=== PATIENT | male | born 1975 | race Caucasian/White ===

== ENCOUNTER 2019-12-25 14:32 | Emergency (ER) | payer SELFPAY ==
[2019-12-25 15:38] LABS: Absolute Lymphocytes (CBC) 1.6 K/uL (0.7-4.9); Basophils % 1.3 % (0-1.3); Hematocrit 42.9 % (39.6-49.0); Lymphocytes % 20.2 % (15.3-44.8); MPV 8.3 fL (7.6-11.3); RBC Red Blood Cell Count 4.87 M/uL (4.33-5.43)
--- NOTE | 2019-12-25 15:52 | RAD REPORT ---
EXAM DESCRIPTION: CT - Stone Protocol - 12/25/2019 3:36 pm CLINICAL HISTORY: Abdominal pain./left flank pain COMPARISON: None. TECHNIQUE: Computed axial tomography of the abdomen pelvis was obtained without oral or IV contrast. Lack of IV and oral contrast limits evaluation of solid organs, bowel, and vessels. Coronal reformat peggy images were obtained and reviewed. All CT scans are performed using dose optimization technique as appropriate and may include automated exposure control or mA/KV adjustment according to patient size. FINDINGS: Small right renal calculi. No hydronephrosis. Left extrarenal pelvis. Minimal left hydronephrosis. No left renal calculus. A ureteral calculus is n ot visualized. No bladder calculus. Portions of the left ureter are mildly dilated 3 millimeter right lower lobe nodule abuts the fissure. Small hepatic cysts. The liver, spleen, pancreas and adrenals appear grossly normal There is no evidence of diverticulitis. The appendix appears normal. Small inguinal hernias contain fat. Spondylosis involves L4-5 IMPRESSION: Nonobstructing right renal calculi Portions of the left ureter are mildly dilated. Minimal left hydronephrosis. Perhaps the patient has had a recently passed stone 3 millimeter right lower lobe nodule probably benign. If patient is high risk follow up CT chest in 1 year would be recommended
[2019-12-25 15:54] LABS: Potassium 4.1 mmol/L (3.5-5.1)
--- NOTE | 2019-12-25 16:01 | EDPHYS ---
Physician Documentation [facility] Name: Severo Luna Age: 44 yrs Sex: Male : 1975 Arrival Date: 12/25/2019 Time: 14:33 Bed 17 Private MD: ED Physician Eb Hanley HPI: 12/24 16:04 This 44 yrs old Male presents to ER via Ambulatory with complaints of kb Possible Kidney Stone. 16:04 The patient complains of pain in the left flank. The pain radiates to the left lower kb quadrant. Onset: The symptoms/episode began/occurred yesterday. Modifying factors: The symptoms are alleviated by nothing. the symptoms are aggravated by nothing. Associated signs and symptoms: The patient has no apparent associated signs or symptoms. Severity of pain: At its worst the pain was moderate in the emergency department the pain is unchanged. The patient has experienced similar episodes in the past. The patient has not recently seen a physician. Historical: - Allergies: 14:46 No Known Allergies; aa5 - PMHx: 14:46 Hypertension; Kidney stones; acid reflux; aa5 - PSHx: 14:46 Disc surgery; aa5 - Immunization history:: Adult Immunizations unknown. - Social history:: Smoking status: Patient denies any tobacco usage or history of. ROS: 16:02 Constitutional: Negative for fever, chills, and weight loss, Neck: Negative for injury, kb pain, and swelling, Cardiovascular: Negative for chest pain, palpitations, and edema, Respiratory: Negative for shortness of breath, cough, wheezing, and pleuritic chest pain, : Negative for injury, bleeding, discharge, and swelling, MS/Extremity: Negative for injury and deformity, Skin: Negative for injury, rash, and discoloration, Neuro: Negative for headache, weakness, numbness, tingling, and seizure. 16:02 Abdomen/GI: Positive for abdominal pain, Negative for nausea, vomiting, and diarrhea. 16:02 Back: Positive for flank pain, on the left. Exam: 16:02 Constitutional: This is a well developed, well nourished patient who is awake, alert, kb and in no acute distress. Head/Face: Normocephalic, atraumatic. Chest/axilla: Normal chest wall appearance and motion. Nontender with no deformity. No lesions are appreciated. Cardiovascular: Regular rate and rhythm with a normal S1 and S2. No gallops, murmurs, or rubs. Normal PMI, no JVD. No pulse deficits. Respiratory: Lungs have equal breath sounds bilaterally, clear to auscultation and percussion. No rales, rhonchi or wheezes noted. No increased work of breathing, no retractions or nasal flaring. Back: No spinal tenderness. No costovertebral tenderness. Full range of motion. Skin: Warm, dry with normal turgor. Normal color with no rashes, no lesions, and no evidence of cellulitis. MS/ Extremity: Pulses equal, no cyanosis. Neurovascular intact. Full, normal range of motion. Neuro: Awake and alert, GCS 15, oriented to person, place, time, and situation. Cranial nerves II-XII grossly intact. Motor strength 5/5 in all extremities. Sensory grossly intact. Cerebellar exam normal. Normal gait. 16:02 Abdomen/GI: Inspection: abdomen appears normal, Bowel sounds: normal, in all quadrants, Palpation: soft, in all quadrants, moderate abdominal tenderness, in the left lower quadrant. Vital Signs: 14:44 BP 141 / 85; Pulse 53; Resp 18 S; Temp 98.2(O); Pulse Ox 100% on R/A; Weight 105.23 kg aa5 (R); Height 5 ft. 10 in. (177.80 cm) (R); Pain 6/10; 16:01 BP 124 / 75; Pulse 47; Resp 16; Pulse Ox 98% ; bp 14:44 Body Mass Index 33.29 (105.23 kg, 177.80 cm) aa5 MDM: 14:52 Patient medically screened. kb 15:55 Data reviewed: vital signs, nurses notes. Data interpreted: Pulse oximetry: on room air kb is 100 %. Interpretation: normal. Counseling: I had a detailed discussion with the patient and/or guardian regarding: the historical points, exam findings, and any diagnostic results supporting the discharge/admit diagnosis, lab results, radiology results, the need for outpatient follow up, a urologist, to return to the emergency department if symptoms worsen or persist or if there are any questions or concerns that arise at home. ED course: Stone was noted in urine sample that was provided prior to CT scan. 12/24 15:09 Order name: Basic Metabolic Panel; Complete Time: 15:55 kb 12/24 15:09 Order name: CBC with Diff; Complete Time: 15:41 kb 12/24 15:09 Order name: CT Stone Protocol; Complete Time: 15:55 kb 12/24 15:09 Order name: Urine Dipstick-Ancillary (obtain specimen); Complete Time: 15:22 kb 12/24 15:09 Order name: IV Start; Complete Time: 15:22 kb 12/24 15:36 Order name: Urine Dipstick--Ancillary (enter results) em1 Administered Medications: No medications were administered Disposition: 16:20 Co-signature as Attending Physician, Eb Hanley MD. rn Disposition: 12/25/19 16:01 Discharged to Home. Impression: Calculus of kidney and ureter - passed. - Condition is Stable. - Discharge Instructions: Kidney Stones, [id number], Dietary Guidelines to Help Prevent Kidney Stones. - Prescriptions for Diclofenac Sodium 75 mg Oral Tablet, Delayed Release (E.C.) - take 1 tablet by ORAL route 2 times per day As needed; 30 tablet. - Medication Reconciliation Form, Thank You Letter, Antibiotic Education, Prescription Opioid Use form. - Follow up: Emergency Department; When: As needed; Reason: Worsening of condition. Follow up: Private Physician; When: 2 - 3 days; Reason: Recheck today's complaints, Continuance of care, Re-evaluation by your physician. Signatures: Dispatcher [employer] EDMona Weathers, ROLLING MACHINE OPERATOR AUTOMATIC-C ROLLING MACHINE OPERATOR AUTOMATIC-Ckb Eb Hanley MD MD rn Calderon, Audri, RN RN aa5 Raman Negrete RN RN bp Corrections: (The following items were deleted from the chart) 16:13 16:01 12/25/2019 16:01 Discharged to Home. Impression: Calculus of kidney and ureter - bp passed. Condition is Stable. Forms are Medication Reconciliation Form, Thank You Letter, Antibiotic Education, Prescription Opioid Use. Follow up: Emergency Department; When: As needed; Reason: Worsening of condition. Follow up: Private Physician; When: 2 - 3 days; Reason: Recheck today's complaints, Continuance of care, Re-evaluation by your physician. kb
--- NOTE | 2019-12-25 16:01 | ER ---
Nurse's Notes [facility] Name: Severo Luna Age: 44 yrs Sex: Male : 1975 Arrival Date: 12/25/2019 Time: 14:33 Bed 17 Private MD: Diagnosis: Calculus of kidney and ureter-passed Presentation: 12/24 14:44 Chief complaint: Patient states: left flank pain radiating to LLQ that began today. Pt aa5 also reports nausea and vomiting, hx of kidney stones. Coronavirus screen: Client denies travel out of the [place] in the last 14 days. At this time, the client does not indicate any symptoms associated with coronavirus-19. Ebola Screen: Patient negative for fever greater than or equal to 101.5 degrees Fahrenheit, and additional compatible Ebola Virus Disease symptoms. Initial Sepsis Screen: Does the patient meet any 2 criteria? No. Patient's initial sepsis screen is negative. Does the patient have a suspected source of infection? No. Patient's initial sepsis screen is negative. Risk Assessment: Do you want to hurt yourself or someone else? Patient reports no desire to harm self or others. Onset of symptoms was December 25, 2019. 14:44 Method Of Arrival: Ambulatory aa5 14:44 Acuity: SCOT 3 aa5 Triage Assessment: 14:50 General: Appears in no apparent distress. uncomfortable, Behavior is cooperative, bp appropriate for age, anxious. Pain: Complains of pain in left flank. EENT: No deficits noted. Neuro: No deficits noted. Cardiovascular: No deficits noted. Respiratory: No deficits noted. GI: Abdomen is non-distended, Reports nausea. : No signs and/or symptoms were reported regarding the genitourinary system. Derm: No deficits noted. Musculoskeletal: No deficits noted. Historical: - Allergies: 14:46 No Known Allergies; aa5 - PMHx: 14:46 Hypertension; Kidney stones; acid reflux; aa5 - PSHx: 14:46 Disc surgery; aa5 - Immunization history:: Adult Immunizations unknown. - Social history:: Smoking status: Patient denies any tobacco usage or history of. Screenin:50 Abuse screen: Denies threats or abuse. Denies injuries from another. Nutritional bp screening: No deficits noted. Tuberculosis screening: No symptoms or risk factors identified. Fall Risk None identified. Assessment: 14:50 General: SEE TRIAGE NOTE. bp 15:30 Reassessment: STONE NOTED IN PROVIDED UOP. bp 16:08 Reassessment: PT D/C HOME AMBULATORY WITH FAMILY, DX WITH RENAL CALCULUS. bp Vital Signs: 14:44 BP 141 / 85; Pulse 53; Resp 18 S; Temp 98.2(O); Pulse Ox 100% on R/A; Weight 105.23 kg aa5 (R); Height 5 ft. 10 in. (177.80 cm) (R); Pain 6/10; 16:01 BP 124 / 75; Pulse 47; Resp 16; Pulse Ox 98% ; bp 14:44 Body Mass Index 33.29 (105.23 kg, 177.80 cm) aa5 ED Course: 14:33 Patient arrived in ED. ag5 14:45 Triage completed. aa5 14:46 Arm band placed on. aa5 14:47 Mona Mchugh FNP-C is [facility]. kb 14:47 Eb Hanley MD is Attending Physician. kb 14:50 Patient has correct armband on for positive identification. Bed in low position. Call bp light in reach. Side rails up X2. 15:03 Raman Negrete, RN is Primary Nurse. bp 15:20 Inserted saline lock: 20 gauge in right forearm, using aseptic technique. bp 15:30 No provider procedures requiring assistance completed. IV discontinued, intact, bp bleeding controlled, No redness/swelling at site. Pressure dressing applied. 15:37 CT Stone Protocol In Process Unspecified. EDMS Administered Medications: No medications were administered Outcome: 15:30 Discharged to home bp 15:30 Condition: stable 15:30 Discharge instructions given to patient, family, Instructed on discharge instructions, follow up and referral plans. Demonstrated understanding of instructions, follow-up care. 16:01 Discharge ordered by . kb 16:13 Patient left the ED. bp Signatures: Dispatcher [employer] EDMS Mona Mchugh FNP-C FNP-Ckb Calderon, Audri, RN RN [facility] Raman Negrete, RN RN Ajay Zapata ag5
[2019-12-25 16:21] VITALS: TEMP 98.2
[2019-12-25 16:23] VITALS: BP 124/75; O2SAT 98
[2019-12-25 17:44] LABS: Urine Blood 3+ (NEG); Urine Glucose NEGATIVE (NEG); Urine Protein NEGATIVE (NEG)
== END 2019-12-25 16:13 | disposition home or self-care (01) ==
LOC: ER 14:32
DX: N20.2 Calculus of kidney with calculus of ureter (principal); Z87.442 Personal history of urinary calculi
CPT/HCPCS: 36415; 74176; 76377; 80048; 81003; 85025; 99283

== ENCOUNTER 2020-10-12 08:46 | Emergency (ER) | payer OTHER, SELFPAY ==
[2020-10-12 09:56] LABS: Absolute Lymphocytes (CBC) 1.2 K/uL (0.7-4.9); Basophils % 0.9 % (0-1.3); Hematocrit 44.5 % (39.6-49.0); Lymphocytes % 17.7 % (15.3-44.8); MPV 7.9 fL (7.6-11.3); RBC Red Blood Cell Count 4.95 M/uL (4.33-5.43)
[2020-10-12 10:11] LABS: Albumin 3.6 g/dL (3.4-5.0); Bilirubin Direct 0.1 mg/dL (0-0.2); Bilirubin Total 0.3 mg/dL (0.2-1.0); Potassium 4.1 mmol/L (3.5-5.1); Protein, Total 7.1 g/dL (6.4-8.2)
[2020-10-12] MEDS ORDERED: NA CHLORIDE 0.9% 1,000 ML ONE (10:12)
[2020-10-12] MEDS ORDERED: ONDANSETRON 4 MG/2 ML VIAL ONE (10:12)
[2020-10-12] MEDS ORDERED: MORPHINE 4 MG/ML SYR ONE (10:12)
[2020-10-12 10:32] LABS: Urine Blood 2+ (Negative); Urine Glucose Negative (Negative); Urine Protein Negative (Negative); Urine Specific Gravity 1.015 (1.005-1.030); Urine pH 5.5 (5.0-7.0)
[2020-10-12 10:42] LABS: Urine Bacteria NONE SEEN /HPF (NONE SEEN); Urine RBC >50 /HPF (NONE SEEN)
--- NOTE | 2020-10-12 11:16 | RAD REPORT ---
EXAM DESCRIPTION: CT - Stone Protocol - 10/12/2020 10:48 am CLINICAL HISTORY: RLQ PAIN COMPARISON: Stone Protocol dated 12/25/2019 TECHNIQUE: Axial 3 mm thick images were obtained without oral or IV contrast. The [id number] span s the entirety of the system including uppermost abdomen and lung bases. All CT scans are performed using dose optimization technique as appropriate and may include automated exposure control or mA/KV adjustment according to patient size. FINDINGS: Small 4 mm nodule lateral right lung base unchanged from December 2019. No acute lung base finding. Mild dilatation of the right pelvis and calices present secondary to a 5 mm right UPJ calculus. There is a nonobstructing 5 mm calcification in a calyx mid right kidney. No left-sided hydronephrosis and no left-sided calculi. No suspicious renal masses. Isodense masses and pyelonephritis are not exclud ed on a stone protocol CT scan. No significant adrenal finding. No urinary bladder suspicious finding . Imaged portions of the liver, spleen and pancreas show no suspicious findings on non-contrast imaging . No gallbladder or biliary tree abnormality identified. No suspicious bowel findings. No hernia, mass or bulky lymphadenopathy noted. No free air, free fluid or inflammatory stranding. No significant bony abnormality. IMPRESSION: Right UPJ 5 mm calcification causing mild dilatation of the pelvis and calices. Nonobstructing 5 mm calculus mid right kidney. Isodense masses and pyelonephritis are not excluded on stone protocol technique.
[2020-10-12] MEDS ORDERED: TAMSULOSIN 0.4 MG SR CAP ONE (11:59)
[2020-10-12] MEDS ORDERED: MAGNESIUM SULFATE 1 gm IVPB 1 GM/100 ML BAG IV ONE (11:59)
[2020-10-12] MEDS ORDERED: CEFTRIAXONE/SWI 1gm 1 GM/10 ML SYR ONE (11:59)
--- NOTE | 2020-10-12 18:05 | ER ---
Nurse's Notes [facility] Name: Severo Luna Age: 45 yrs Sex: Male : 1975 Arrival Date: 10/12/2020 Time: 08:48 Bed 15 Private MD: Diagnosis: Calculus of kidney with calculus of ureter-right Presentation: 10/12 08:56 Chief complaint: Patient states: episodic RLQ pain that began 2-3 days ago. Became much ss worse with nausea this morning and now "spasms" R flank. Coronavirus screen: Client denies travel out of the [place] in the last 14 days. Ebola Screen: Patient denies exposure to infectious person. Patient denies travel to an Ebola-affected area in the 21 days before illness onset. Initial Sepsis Screen: Does the patient meet any 2 criteria? No. Patient's initial sepsis screen is negative. Does the patient have a suspected source of infection? No. Patient's initial sepsis screen is negative. Risk Assessment: Do you want to hurt yourself or someone else? Patient reports no desire to harm self or others. Onset of symptoms was October 10, 2020. 08:56 Method Of Arrival: Ambulatory ss 08:56 Acuity: SCOT 3 ss Historical: - Allergies: 08:59 No Known Allergies; ss - Home Meds: 08:59 omeprazole 40 mg Oral cpDR 1 cap once daily [Active]; losartan 25 mg oral tab 1 tab ss once daily [Active]; - PMHx: 08:59 acid reflux; Hypertension; Kidney stones; ss - PSHx: 08:59 back sx; ss - Immunization history:: Adult Immunizations up to date. - Social history:: Smoking status: Patient denies any tobacco usage or history of. Screenin:34 Abuse screen: Denies threats or abuse. Nutritional screening: No deficits noted. ll1 Tuberculosis screening: No symptoms or risk factors identified. Fall Risk IV access (20 points). Total Granado Fall Scale indicates No Risk (0-24 pts). Assessment: 09:35 General: Appears in no apparent distress. Behavior is calm, cooperative, appropriate ll1 for age. Pain: Complains of pain in RLQ Quality of pain is described as aching. Neuro: No deficits noted. Cardiovascular: No deficits noted. Respiratory: No deficits noted. GI: Bowel sounds present X 4 quads. Abd is soft and non tender X 4 quads. Reports lower abdominal pain. 10:30 Reassessment: No changes from previously documented assessment. Patient and/or family ll1 updated on plan of care and expected duration. Pain level reassessed. 11:30 Reassessment: No changes from previously documented assessment. Patient and/or family ll1 updated on plan of care and expected duration. Pain level reassessed. Patient is alert, oriented x 3, equal unlabored respirations, skin warm/dry/pink. 12:30 Reassessment: No changes from previously documented assessment. Patient and/or family ll1 updated on plan of care and expected duration. Pain level reassessed. 13:30 Reassessment: No changes from previously documented assessment. Patient and/or family ll1 updated on plan of care and expected duration. Pain level reassessed. Patient is alert, oriented x 3, equal unlabored respirations, skin warm/dry/pink. Patient states feeling better. Patient states symptoms have improved. Vital Signs: 08:56 BP 152 / 96; Pulse 68; Resp 16; Temp 97.9(TE); Pulse Ox 98% on R/A; Weight 111.13 kg; ss Height 5 ft. 10 in. (177.80 cm); Pain 10/10; 10:14 BP 140 / 80; Pulse 51; Resp 17; ll1 13:36 BP 118 / 72; Pulse 58; Resp 17; Pulse Ox 98% on R/A; ll1 08:56 Body Mass Index 35.15 (111.13 kg, 177.80 cm) ED Course: 08:48 Patient arrived in ED. as 08:59 Triage completed. ss 08:59 Arm band placed on right wrist. ss 09:29 Johann Miller, ESSENCE is Primary Nurse. ll1 09:29 Patient placed in an exam room, on a stretcher. ll1 09:31 Wes Moctezuma PA is PHCP. cp 09:31 Eb Hanley MD is Attending Physician. cp 09:35 Patient has correct armband on for positive identification. Bed in low position. Call ll1 light in reach. Side rails up X 1. Pulse ox on. NIBP on. 09:42 Inserted saline lock: 22 gauge in right antecubital area, using aseptic technique. ll1 Blood collected. 10:48 Stone Protocol In Process Unspecified. EDMS 12:30 Wiliam Adorno MD is Referral Physician. cp 13:37 No provider procedures requiring assistance completed. IV discontinued, intact, ll1 bleeding controlled, No redness/swelling at site. Pressure dressing applied. Administered Medications: 10:07 Drug: NS 0.9% 1000 ml Route: IV; Rate: 1 bolus; Site: right antecubital; ll1 11:44 Follow up: Response: No adverse reaction; IV Status: Completed infusion; IV Intake: ll1 1000ml 10:07 Drug: morphine 4 mg Route: IVP; Site: right antecubital; ll1 11:17 Follow up: Response: No adverse reaction ll1 10:07 Drug: Zofran (Ondansetron) 4 mg Route: IVP; Site: right antecubital; ll1 11:17 Follow up: Response: No adverse reaction ll1 11:44 Drug: Flomax (tamsulosin) 0.4 mg Route: PO; ll1 13:35 Follow up: Response: No adverse reaction ll1 11:44 Drug: Magnesium Sulfate 1 grams Route: IVPB; Infused Over: 20 mins; Site: right ll1 antecubital; 12:44 Follow up: Response: No adverse reaction; IV Status: Completed infusion; IV Intake: ll1 100ml 11:44 Drug: Rocephin (cefTRIAXone) 1 grams Route: IV; Rate: calculated rate; Site: right ll1 antecubital; 13:38 Follow up: Response: No adverse reaction; IV Status: Completed infusion; IV Intake: [id number] 12:02 Drug: NS 0.9% 1000 ml Route: IV; Rate: 1 bolus; Site: right antecubital; ll1 13:35 Follow up: Response: No adverse reaction; IV Status: Completed infusion; IV Intake: ll1 1000ml 12:03 Drug: Ketorolac 15 mg Route: IVP; Site: right antecubital; ll1 13:35 Follow up: Response: No adverse reaction; Pain is decreased ll1 12:03 Drug: Dilaudid (HYDROmorphone) 1 mg Route: IVP; Site: right antecubital; ll1 13:35 Follow up: Response: No adverse reaction; Pain is decreased; RASS: Alert and Calm (0) ll1 Intake: 11:44 IV: 1000ml; Total: 1000ml. ll1 12:44 IV: 100ml; Total: 1100ml. ll1 13:35 IV: 1000ml; Total: 2100ml. ll1 13:38 IV: 10ml; Total: 2110ml. ll1 Outcome: 12:30 Discharge ordered by MD. cp 13:37 Discharged to home ambulatory. ll1 13:37 Condition: stable 13:37 Discharge instructions given to patient, family, Instructed on discharge instructions, follow up and referral plans. no drinking with medication, no driving heavy equipment, medication usage, Demonstrated understanding of instructions, follow-up care, medications, Prescriptions given X 4. 13:37 Patient left the ED. ll1 Signatures: Dispatcher [employer] EDMS Kristine Pagan Shelby, RN RN Wes Srinivasan PA PA cp Lewis, Lynsay, RN RN 1
--- NOTE | 2020-10-12 18:05 | EDPHYS ---
Physician Documentation [facility] Name: Severo Luna Age: 45 yrs Sex: Male : 1975 Arrival Date: 10/12/2020 Time: 08:48 Bed 15 Private MD: ED Physician Eb Hanley HPI: 10/12 09:41 This 45 yrs old Male presents to ER via Ambulatory with complaints of cp Abdominal Pain. 09:41 The patient presents with abdominal pain in the lower abdomen. Onset: The cp symptoms/episode began/occurred gradually, last week, and became worse this morning, Patient reports pain started gradually last Sunday and became worse this morning. The symptoms radiate to right back. Associated signs and symptoms: Pertinent positives: nausea, Pertinent negatives: constipation, diarrhea, fever, testicular pain, vomiting. The symptoms are described as constant. Historical: - Allergies: 08:59 No Known Allergies; ss - Home Meds: 08:59 omeprazole 40 mg Oral cpDR 1 cap once daily [Active]; losartan 25 mg oral tab 1 tab ss once daily [Active]; - PMHx: 08:59 acid reflux; Hypertension; Kidney stones; ss - PSHx: 08:59 back sx; ss - Immunization history:: Adult Immunizations up to date. - Social history:: Smoking status: Patient denies any tobacco usage or history of. ROS: 09:45 Constitutional: Negative for body aches, chills, fever, poor PO intake. cp 09:45 Eyes: Negative for injury, pain, redness, and discharge. cp Exam: 09:50 Constitutional: The patient appears in no acute distress, alert, awake, non-toxic, well cp developed, well nourished, uncomfortable. 09:50 Head/Face: Normocephalic, atraumatic. cp 09:50 Eyes: Periorbital structures: appear normal, Conjunctiva: normal, no exudate, no injection, Sclera: no appreciated abnormality, Lids and lashes: appear normal, bilaterally. 09:50 ENT: External ear(s): are unremarkable, Nose: is normal, Mouth: Lips: moist, Oral cp mucosa: moist, Posterior pharynx: Airway: no evidence of obstruction, patent. 09:50 Chest/axilla: Inspection: normal, Palpation: is normal, no crepitus, no tenderness. cp 09:50 Cardiovascular: Rate: normal, Rhythm: regular, Edema: is not appreciated, JVD: is not appreciated. 09:50 Respiratory: the patient does not display signs of respiratory distress, Respirations: normal, no use of accessory muscles, no retractions, labored breathing, is not present, Breath sounds: are clear throughout, no decreased breath sounds, no stridor, no wheezing. 09:50 Abdomen/GI: Inspection: abdomen appears normal, Bowel sounds: active, all quadrants, Palpation: soft, in all quadrants, moderate abdominal tenderness, in the anterior aspect of right lateral abdomen, posterior aspect of right lateral abdomen and right lower quadrant, rebound tenderness, is not appreciated, voluntary guarding, is elicited in the right lower quadrant. 09:50 Back: CVA tenderness, is absent. 09:50 Skin: no rash present. Vital Signs: 08:56 BP 152 / 96; Pulse 68; Resp 16; Temp 97.9(TE); Pulse Ox 98% on R/A; Weight 111.13 kg; ss Height 5 ft. 10 in. (177.80 cm); Pain 10/10; 10:14 BP 140 / 80; Pulse 51; Resp 17; ll1 13:36 BP 118 / 72; Pulse 58; Resp 17; Pulse Ox 98% on R/A; ll1 08:56 Body Mass Index 35.15 (111.13 kg, 177.80 cm) ss MDM: 09:41 Patient medically screened. cp 10:00 Differential diagnosis: appendicitis, bowel obstruction, Pyelonephritis, Testicular cp Torsion, Ureterolithiasis, urinary tract infection, colitis. 12:30 Data reviewed: vital signs, nurses notes, lab test result(s), radiologic studies, CT cp scan. 12:30 Counseling: I had a detailed discussion with the patient and/or guardian regarding: the cp historical points, exam findings, and any diagnostic results supporting the discharge/admit diagnosis, lab results, radiology results, the need for outpatient follow up, a urologist, to return to the emergency department if symptoms worsen or persist or if there are any questions or concerns that arise at home. Response to treatment: the patient's symptoms have markedly improved after treatment, VSS. Pain markedly improved. Patient tolerating po. Will discharge to home with return precautions worsening pain, intractable vomiting. 10/12 09:43 Order name: Basic Metabolic Panel; Complete Time: 10:39 cp 10/12 10:39 Interpretation: Normal except: CL 111; GLUC 113; GFR 66. cp 10/12 09:43 Order name: CBC with Diff; Complete Time: 10:39 cp 10/12 10:39 Interpretation: Normal except: EOSINOPHIL % 5.3. cp 10/12 09:43 Order name: Hepatic Function; Complete Time: 10:39 cp 10/12 09:43 Order name: Lipase; Complete Time: 10:39 10/12 09:44 Order name: Urine Microscopic Only; Complete Time: 10:44 10/12 10:44 Interpretation: Abnormal: URBC >50. 10/12 10:32 Order name: Urine Dipstick-Ancillary; Complete Time: 10:39 EDMS 10/12 10:44 Interpretation: Abnormal: UBLD 2+. 10/12 10:47 Order name: Stone Protocol; Complete Time: 11:23 EDMS 10/12 09:43 Order name: IV Saline Lock; Complete Time: 09:44 10/12 09:44 Order name: Labs collected and sent; Complete Time: 09:44 10/12 11:58 Order name: PO challenge; Complete Time: 13:35 cp Administered Medications: 10:07 Drug: NS 0.9% 1000 ml Route: IV; Rate: 1 bolus; Site: right antecubital; ll1 11:44 Follow up: Response: No adverse reaction; IV Status: Completed infusion; IV Intake: ll1 1000ml 10:07 Drug: morphine 4 mg Route: IVP; Site: right antecubital; ll1 11:17 Follow up: Response: No adverse reaction ll1 10:07 Drug: Zofran (Ondansetron) 4 mg Route: IVP; Site: right antecubital; ll1 11:17 Follow up: Response: No adverse reaction ll1 11:44 Drug: Flomax (tamsulosin) 0.4 mg Route: PO; ll1 13:35 Follow up: Response: No adverse reaction ll1 11:44 Drug: Magnesium Sulfate 1 grams Route: IVPB; Infused Over: 20 mins; Site: right ll1 antecubital; 12:44 Follow up: Response: No adverse reaction; IV Status: Completed infusion; IV Intake: ll1 100ml 11:44 Drug: Rocephin (cefTRIAXone) 1 grams Route: IV; Rate: calculated rate; Site: right ll1 antecubital; 13:38 Follow up: Response: No adverse reaction; IV Status: Completed infusion; IV Intake: 44sfiz2 12:02 Drug: NS 0.9% 1000 ml Route: IV; Rate: 1 bolus; Site: right antecubital; ll1 13:35 Follow up: Response: No adverse reaction; IV Status: Completed infusion; IV Intake: ll1 1000ml 12:03 Drug: Ketorolac 15 mg Route: IVP; Site: right antecubital; ll1 13:35 Follow up: Response: No adverse reaction; Pain is decreased ll1 12:03 Drug: Dilaudid (HYDROmorphone) 1 mg Route: IVP; Site: right antecubital; ll1 13:35 Follow up: Response: No adverse reaction; Pain is decreased; RASS: Alert and Calm (0) ll1 Disposition: 16:50 Co-signature as Attending Physician, Eb Hanley MD. rn Disposition Summary: 10/12/20 12:30 Discharge Ordered Location: Home cp Problem: new cp Symptoms: have improved cp Condition: Stable cp Diagnosis - Calculus of kidney with calculus of ureter - right cp Followup: cp - With: Wiliam Adorno MD - When: 2 - 3 days - Reason: Recheck today's complaints Discharge Instructions: - Discharge Summary Sheet cp - Kidney Stones cp - Renal Colic cp Forms: - Medication Reconciliation Form cp - Thank You Letter cp - Antibiotic Education cp - Prescription Opioid Use cp Prescriptions: - Flomax 0.4 mg Oral capsule - take 1 capsule by ORAL route once daily As needed 1/2 hour following the same cp meal each day; 5 capsule; Refills: 0, Product Selection Permitted - Ultracet 37.5-325 mg Oral Tablet - take 1 tablet by ORAL route every 6 hours - for up to 5 days; do not exceed 8 cp tablets per day.; 20 tablet; Refills: 0, Product Selection Permitted - Zofran 4 mg Oral Tablet - take 1 tablet by ORAL route every 12 hours As needed; 20 tablet; Refills: 0, cp Product Selection Permitted - Cipro 500 mg Oral Tablet - take 1 tablet by ORAL route every 12 hours for 7 days; 14 tablet; Refills: 0, cp Product Selection Permitted Signatures: Dispatcher [employer] EDMS Eb Hanley MD MD rn Smirch, Shelby, RN RN ss Wes Moctezuma PA PA cp Lewis, Lynsay RN RN ll1 Corrections: (The following items were deleted from the chart) 10:39 09:44 Abdomen Pelvis W Con+CT.RAD.BRZ ordered. EDMS EDMS 10:47 10:40 Abdomen ordered. EDMS EDMS
[2020-10-13 21:26] VITALS: TEMP 97.9; O2SAT 98
[2020-10-13 21:29] VITALS: BP 118/72
== END 2020-10-12 13:37 | disposition home or self-care (01) ==
LOC: ER 08:46
DX: N20.2 Calculus of kidney with calculus of ureter (principal); K21.9 Gastro-esophageal reflux disease without esophagitis; I10 Essential (primary) hypertension
CPT/HCPCS: 85025; 80048; 36415; 80076; 83690; 76377; 74176; J3475; J0696; J7030; J2405; 81003; 81015; 96361; 96365; 96366; 96368; 96375; 99284

== ENCOUNTER 2020-10-18 08:06 | Day surgery (SDC) | payer OTHER ==
[2020-10-15 13:39] LABS: Absolute Lymphocytes (CBC) 1.3 K/uL (0.7-4.9); Basophils % 1.1 % (0-1.3); Hematocrit 42.2 % (39.6-49.0); Lymphocytes % 16.1 % (15.3-44.8); MPV 7.7 fL (7.6-11.3); RBC Red Blood Cell Count 4.72 M/uL (4.33-5.43)
--- NOTE | 2020-10-15 13:47 | RAD REPORT ---
EXAM DESCRIPTION: RAD - Chest Pa And Lat (2 Views) - 10/15/2020 1:30 pm CLINICAL HISTORY: pre op, pending hernia repair COMPARISON: February 2016 TECHNIQUE: Frontal and lateral views of the chest were obtained. FINDINGS: The lungs are clear. Interstitial pattern matches comparison. Heart size is normal and ce ntral vasculature is within normal limits. No pleural effusion or pneumothorax seen. No acute bony finding noted. No aortic abnormality. IMPRESSION: No acute cardiopulmonary process. No significant change from comparison study.
[2020-10-15 13:52] LABS: Albumin 3.8 g/dL (3.4-5.0); Bilirubin Direct 0.2 mg/dL (0-0.2); Bilirubin Total 0.7 mg/dL (0.2-1.0); Protein, Total 7.5 g/dL (6.4-8.2)
[2020-10-18] MEDS ORDERED: Ringers Lactate 1,000 ML IV ONE (09:29)
[2020-10-18] MEDS: CEFOXITIN/SWI 1gm 1 GM/10 ML SYR ONE ×3 (10:18→11:55)
[2020-10-18] MEDS ORDERED: LIDOCAINE 1% MPF 5 ML VIAL ONE (11:51)
[2020-10-18] MEDS ORDERED: propofoL 200 MG/20 ML VIAL IV ONE (11:51)
[2020-10-18] MEDS ORDERED: FENTANYL CITR 100 MCG/2 ML ONE (11:51)
[2020-10-18] MEDS ORDERED: ROCURONIUM 50 MG/5 ML VIAL IV ONE (11:51)
[2020-10-18] MEDS ORDERED: MIDAZOLAM HCL 2 MG/2 ML INJ ONE (11:52)
--- NOTE | 2020-10-18 12:50 | P.BOP ---
Preoperative diagnosis: RLQ recurrent abd pain, tender umbilical hernia Postoperative diagnosis: same Primary procedure: 1. Diagnostic laparoscopy, 2. Laparoscopic appendectomy Secondary procedure: 3. open repair of umbilical hernia Specimen: hernia sac, appendix Findings: as above Anesthesia: General Complications: None Transferred to: Recovery Room Condition: Good
[2020-10-18] MEDS ORDERED: GLYCOPYRROLATE 0.2 MG/ML SYR ONE (12:52)
[2020-10-18] MEDS ORDERED: NEOSTIGMINE 1 MG/ML -5 ML ONE (12:53)
[2020-10-18] MEDS ORDERED: dexAMETHasone 10 MG/ML VIAL ONE (12:54)
[2020-10-18] MEDS ORDERED: KETOROLAC 30 MG/ML INJ ONE (12:54)
[2020-10-18] MEDS ORDERED: ONDANSETRON 4 MG/2 ML VIAL ONE (12:54)
[2020-10-18 13:10] VITALS: O2SAT 100
[2020-10-18] MEDS ORDERED: MEPERIDINE HCL 25 MG/ML SYR ONE (13:18)
[2020-10-18] MEDS: HYDROMORPHONE HCL 1 MG/ML INJ ONE ×2 (13:24→13:30)
--- NOTE | 2020-10-18 13:33 | OP ---
Date of Procedure: 10/18/2020 Surgeon: Bebo Pagan MD Preoperative Diagnoses: Right lower quadrant recurrent abdominal pain, tender umbilical hernia. Postoperative Diagnoses: Right lower quadrant recurrent abdominal pain, tender umbilical hernia. Procedures: 1.Diagnostic laparoscopy. 2.Laparoscopic appendectomy. 3.Open repair of umbilical hernia. Specimen: Appendix. Anesthesia: General plus local. Indications: This is the case of a 45-year-old patient who comes to us with 2 problems. He has a te nder periumbilical hernia, but at the same time, right lower quadrant pain. He has been in ER before and his primary doctor before trying to rule out appendicitis, but they have been able to find that on the CAT scan. He has an induration of the right lower side and the pain has been on and off weekl y and is disturbing his social life. Since we have a hernia present in that region and have to be re paired due to tenderness, I offered also a diagnostic laparoscopy putting the cameras inside. I may be looking for a ventral hernia in the right lower quadrant, any other pathology that he has on the r ight lower quadrant causing this pain and also he asked me to see if I can see the appendix and remov e it if possible. I explained to him that we are going to look for any abnormalities in the appendix . If I see anything other normal, yes we may proceed to do so. We booked him for diagnostic laparos copy, umbilical hernia repair, possible ventral hernia repair with the possibility of appendectomy. The benefits, alternatives, and risks were fully explained to the patient which include, but not limi peggy to infection, bleeding, damage to adjacent structures, anesthesia complication, negative appendix , negative exploration, MD, and even . He also understands this may not relieve any symptoms. He might need more than one surgical intervention. He understood, signed a consent. Procedure In Detail: The patient was brought to the operating room, placed in supine position. Anes thesia was done without complication. Abdominal area was prepped and draped in sterile fashion. A t lali-out was called. Incision was made in the periumbilical region. At that area, we have a hernia. We removed the umbilical skin from the hernia, removed the hernia sac. Then extended incision to al low Ebony trocar to be placed in. After that, I put the Ebony trocar to do a diagnostic laparoscop y. We put another 5 mm trocar in the suprapubic area and another 1 in the left lower quadrant. This allowed me to visualize the area of the small bowel, the large bowel, the liver and the area of the pelvis. The appendix was visualized, looks curled, looks asymmetrical in shape and color. I cannot rule out a chronic appendicitis in this patient. So, the appendix most likely will be removed. Ther e was a scar tissue to the appendix also that will also be removed with the specimen. The area of th e small bowel and large bowel shows no extraluminal masses. The area of the ventral region other sandro n the umbilical hernia does not show any ventral hernia present. We marked the area of the right low er quadrant and also near the rectus muscle with ink before the surgery and we were present in those areas while I had the camera inside and did not see any hernias in that region. The area of the pelv is looks intact. The area of the liver looks intact and stomach soft and compressible. At that mome nt, I proceeded to place create a window in the base of the appendix and transected with an Endo-SABINO 45 mm 3.5 and the mesoappendix with the Endo-SABINO 45 mm 2.5. Further hemostasis was obtained with the help of hemoclips. The area was irrigated and suctioned. Appendix was removed from abdominal cavit y using EndoCatch through the umbilical incision. The area was inspected, no bleeding. No bowel leak . At that moment, I proceeded to remove the trocars under direct vision. Deflated pneumoperitoneum, closed the fascia and umbilical hernia with #1 Vicryl. Irrigated subcutaneous tissue, closed that w ith 3-0 chromic and the skin in a subcuticular fashion with 3-0 chromic and Steri-Strips on top. Spo nge count, instrument counts were correct. The patient tolerated the procedure well. The patient sent to recovery in stab le condition. EDWAR/BORIS Voice ID: [id number] Report ID: [id number]
--- NOTE | 2020-10-18 13:36 | DS ---
Diagnoses: Right lower quadrant recurrent abdominal pain, tender umbilical hernia and appendicitis. Procedures: Diagnostic laparoscopy, laparoscopic appendectomy, open repair of umbilical hernia. Disposition: Home. Activity: As tolerated. No heavy lifting. Plan: Follow up in my office in 1 week. Call for appointment [phone]. Keep the area dry for 48 ho urs, then may shower. Keep Steri-Strip intact. Medications: Include Tylenol No.3 q.4 hours p.r.n. pain. EDWAR/BORIS Voice ID: [id number] Report ID: [id number]
[2020-10-18] MEDS ORDERED: CODEINE 30MG/APAP 300MG TAB PO ONE (14:09)
[2020-10-18] MEDS ORDERED: CODEINE 30MG/APAP 300MG TAB ONE (14:23)
[2020-10-18 14:31] VITALS: BP 132/63
[2020-10-18 15:25] VITALS: TEMP 97.6
== END 2020-10-18 15:15 | disposition home or self-care (01) ==
LOC: OR 08:06
PROVIDERS: ATTEND Surgery
PROC: 0DTJ4ZZ Resection of Appendix, Percutaneous Endoscopic Approach (ICD-10-PCS; 2020-10-18)
PROC: 0DJD4ZZ Inspection of Lower Intestinal Tract, Percutaneous Endoscopic Approach (ICD-10-PCS; 2020-10-18)
PROC: 0WQF0ZZ Repair Abdominal Wall, Open Approach (ICD-10-PCS; principal; 2020-10-18 11:30)
DX: K42.9 Umbilical hernia without obstruction or gangrene (principal); R10.31 Right lower quadrant pain; Z20.822 Contact with and (suspected) exposure to COVID-19
CPT/HCPCS: 49585; 44970; 93005; 85025; 80048; 36415; 82150; 80076; 88302; 71046; U0003; J2704; J2250; J3010; J1100; J2175; J1170; J2710; J7120; J2405; 88304

== ENCOUNTER 2020-12-06 10:49 | Day surgery (SDC) | payer OTHER ==
[2020-12-03 12:55] LABS: Protime INR 1.06
[2020-12-03 12:56] LABS: Absolute Lymphocytes (CBC) 1.4 K/uL (0.7-4.9); Basophils % 1.3 % (0-1.3); Hematocrit 41.1 % (39.6-49.0); Lymphocytes % 15.1 % (15.3-44.8); MPV 7.6 fL (7.6-11.3); RBC Red Blood Cell Count 4.67 M/uL (4.33-5.43)
[2020-12-03 13:13] LABS: Potassium 4.1 mmol/L (3.5-5.1)
--- NOTE | 2020-12-03 18:23 | EKG ---
Test Date: 2020-12-03 Test Time: 10:35:38 [place] Rope Maker: TULIO MEASUREMENT RESULTS: Intervals: Rate: 50 HI: 150 QRSD: 98 QT: 428 QTc: 390 [place]: P: 17 HI: 150 QRS: 49 T: 19 INTERPRETIVE STATEMENTS: Sinus bradycardia Otherwise normal ECG Compared to ECG 10/15/2020 12:31:00 Sinus rhythm no longer present Electronically Signed On 12-03-20 18:20:51 CDT by Christopher Becerra
[2020-12-06] MEDS ORDERED: Ringers Lactate 1,000 ML IV ONE (11:22)
[2020-12-06] MEDS ORDERED: MIDAZOLAM HCL 2 MG/2 ML INJ ONE (12:16)
[2020-12-06] MEDS ORDERED: FENTANYL CITR 100 MCG/2 ML ONE (12:16)
[2020-12-06] MEDS ORDERED: propofoL 200 MG/20 ML VIAL IV ONE (12:16)
[2020-12-06] MEDS ORDERED: LIDOCAINE 1% MPF 5 ML VIAL ONE (12:17)
[2020-12-06] MEDS ORDERED: CEFAZOLIN/SWI 2gm 2 GM/20 ML SYR ONE (12:37)
[2020-12-06] MEDS ORDERED: PHENAZOPYRIDINE 100MG TAB PO ONE (12:54)
[2020-12-06] MEDS ORDERED: CODEINE 30MG/APAP 300MG TAB PO PRN (12:54)
[2020-12-06] MEDS ORDERED: KETOROLAC 30 MG/ML INJ ONE (12:59)
[2020-12-06] MEDS ORDERED: ONDANSETRON 4 MG/2 ML VIAL ONE (13:02)
--- NOTE | 2020-12-06 13:37 | RAD REPORT ---
EXAM DESCRIPTION: RAD - Urethrocystogrphy Retrograde - 12/06/2020 12:53 pm CLINICAL HISTORY: STENT PLCMNT COMPARISON: No comparisons FINDINGS: Total fluoro time: 0.16 minutes
[2020-12-06 13:58] VITALS: BP 127/83; TEMP 97.1
[2020-12-06 14:39] VITALS: O2SAT 100
--- NOTE | 2020-12-07 00:29 | OP ---
Date of Procedure: 12/06/2020 Surgeon: ARLETH LIRA Preoperative Diagnoses: 1.Acute kidney injury. 2.Right ureterolithiasis. 3.Right hydronephrosis. 4.Right flank pain. Postoperative Diagnoses: 1.Acute kidney injury. 2.Right ureterolithiasis. 3.Right hydronephrosis. 4.Right flank pain. Principal Procedures: 1.Cystoscopy. 2.Right retrograde pyelography. 3.Right ureteral stent placement. Indication For Procedure: Mr. Luna presented to the Urology Clinic last week on Sunday with flank pain related to right ureteral calculus related obstruction. He had been with signs of what was lik martha acute kidney injury for several weeks at this point, by the time he sought outpatient evaluation with me as noted from his emergency department records. As a result, I counseled him on the importan ce of immediate relief of obstruction of his kidney to prohibit further renal function decline and we rechecked his kidney function, noting it to be relatively stable with the prior level at around 2 fo r the creatinine. Procedure In Detail: The patient was consented in the preoperative holding area before being transfe rred to the operative suite where general anesthesia was induced. He was given Ancef 2 g IV antimicr obial prophylaxis and pneumo boots were provided for DVT prophylaxis. He was placed in the lithotomy position, padded, and secured to the table appropriately. The case was begun using a 22-Cameroonian rigi d cystoscope to traverse the urethra and into the bladder with ease. The bladder was surveyed, and n o mucosal lesions, foreign bodies, or stones were noted throughout. The right ureteral orifice withi n the intramural component of the urine was noted to be somewhat heaped up indicative of the likely v lee distal placement of the stone. As a result, I intubated the right ureteral orifice with the tip of a 5-Cameroonian ureteral access catheter and performed a retrograde pyelogram study. Right retrograde pyelography: Using a 70:30 mixture of Omnipaque and saline, contrast was injected v ia the lumen of the 5-Cameroonian ureteral access catheter and did propagate with some evidences of high-g rade obstruction up the distal into the mid and proximal ureter before entering a very dilated renal pelvis, which did not significantly opacify with contrast. The area of obstruction was from the leve l of the UVJ at the tip of the 5-Cameroonian ureteral access catheter all the way up into the kidney, agai n confirming the likely presence of a stone in the distal ureter at the UVJ. As a result, I then, wi th some moderate difficulty, was able to navigate the tip of the Sensor wire around the obstructing s tone and eventually into the putative upper pole of the kidney as observed fluoroscopically with the wire within the substance of the ureteral lumen as identified by the contrast column there. With a c oil observed in the upper pole, I then was able to pass a 6-Cameroonian x 26 cm double-J ureteral stent in to his right upper pole, and I was able to form a coil there visible fluoroscopically as well as one in the bladder visible cystoscopically. There was evidence of papillary necrosis emanating from the ureteral orifice and from the stent. The bladder was then decompressed, and the scope was removed. He was taken out of the lithotomy position, awakened from general anesthesia, transferred to a [facility], and then transferred to the recovery room in good condition. Complications: None. Discharge Disposition: He should follow up within the next several weeks for ureteroscopy with laser lithotripsy and stent exchange on the right side to manage his stone related obstruction. Of note, the stone on CT was estimated to be about 5.5 mm in diameter and an additional 4 mm calculus is present within the mid pole of his right kidney with no stones on the lef t side. GISSELLE/BORIS Voice ID: [id number] Report ID: [id number]
== END 2020-12-06 14:55 | disposition home or self-care (01) ==
LOC: OR 10:49
PROVIDERS: ATTEND Urology
PROC: 0T768DZ Dilation of Right Ureter with Intraluminal Device, Via Natural or Artificial Opening Endoscopic (ICD-10-PCS; principal; 2020-12-06 12:00)
DX: N13.2 Hydronephrosis with renal and ureteral calculous obstruction (principal); N20.2 Calculus of kidney with calculus of ureter; R10.9 Unspecified abdominal pain; Z20.822 Contact with and (suspected) exposure to COVID-19; N17.9 Acute kidney failure, unspecified
CPT/HCPCS: 93005; 87088; 85025; 87086; 80048; 36415; 85610; 74450; 51610; 52332; U0003; J2704; J2250; J3010; J0690; J7120; J2405

== ENCOUNTER 2021-01-04 06:07 | Day surgery (SDC) | payer OTHER ==
[2021-01-04] MEDS ORDERED: Ringers Lactate 1,000 ML IV ONE (06:52)
[2021-01-04] MEDS ORDERED: SUCCINYLCHOLINE 20 MG/ML (10 ML) IV ONE (07:33)
[2021-01-04] MEDS ORDERED: MIDAZOLAM HCL 2 MG/2 ML INJ ONE (07:36)
[2021-01-04] MEDS ORDERED: LIDOCAINE 1% MPF 5 ML VIAL ONE (07:36)
[2021-01-04] MEDS ORDERED: FENTANYL CITR 100 MCG/2 ML ONE (07:36)
[2021-01-04] MEDS ORDERED: propofoL 200 MG/20 ML VIAL IV ONE ×2 (07:37→08:18)
[2021-01-04] MEDS ORDERED: ROCURONIUM 50 MG/5 ML VIAL IV ONE ×2 (07:41)
[2021-01-04] MEDS ORDERED: AMPICILLIN SODIUM 2 GM in NA CHLORIDE 0.9% 100 ML IVPB ONE (08:00)
[2021-01-04] MEDS ORDERED: Gentamicin Inj 240 MG in NA CHLORIDE 0.9% 100 ML IV ONE (08:00)
[2021-01-04] MEDS ORDERED: GLYCOPYRROLATE 0.2 MG/ML SYR ONE (08:32)
[2021-01-04] MEDS ORDERED: Mastisol Adhesive Liq ONE (08:44)
[2021-01-04] MEDS: FENTANYL CITR 100 MCG/2 ML ONE ×2 (08:48→09:02)
[2021-01-04] MEDS ORDERED: CODEINE 30MG/APAP 300MG TAB PO PRN (08:50)
[2021-01-04] MEDS ORDERED: PHENAZOPYRIDINE 100MG TAB PO ONE ×3 (08:50→09:56)
[2021-01-04] MEDS ORDERED: CODEINE 30MG/APAP 300MG TAB PO ONE (09:30)
[2021-01-04 09:42] LABS: Potassium 4.5 mmol/L (3.5-5.1)
[2021-01-04 09:50] VITALS: BP 123/68
[2021-01-04] MEDS ORDERED: CODEINE 30MG/APAP 300MG TAB ONE (09:56)
[2021-01-04 10:22] VITALS: TEMP 97.9; O2SAT 100
--- NOTE | 2021-01-04 13:22 | OP ---
Surgeon: ARLETH LIRA Preoperative Diagnoses: 1.Right obstructive ureterolithiasis. 2.Acute kidney injury. 3.Status post cystoscopy and right ureteral stent placement. Postoperative Diagnoses: 1.Right obstructive ureterolithiasis. 2.Acute kidney injury. 3.Status post cystoscopy and right ureteral stent placement. 4.A 3 mm nephrolithiasis. 5.Partially excluded mid lower pole renal calyx. Procedures: 1.Cystourethroscopy with pyeloscopy. 2.Laser incision of an excluded renal calyx. 3.Laser lithotripsy of ureteral calculus. 4.Right ureteral stent exchange. Indication For Procedure: Mr. Luna presented to the Urology Clinic with presence of a right urete ral obstructing 5 mm stone and acute kidney injury that had been present for several weeks. He under went urgent right ureteral stent placement to resolve the acute kidney injury and he presents today f or definitive management of the stone. Of note, on review of his imaging, he had an additional 3 mm calculus seen within the mid lower pole of his right kidney. Procedure In Detail: The patient was consented in the preoperative holding area before being transfe rred to operative suite where general anesthesia was induced. He was given ampicillin and gentamicin 240 mg IV antimicrobial prophylaxis. Pneumo boots were provided for DVT prophylaxis. He was placed in the lithotomy position, padded and secured to the table appropriately. His genitalia were preppe d using Hibiclens and he was draped in standard fashion. The case was begun using a 22-Georgian rigid cystoscope to traverse the urethra and into the bladder with ease. The bladder was surveyed in its e ntirety and only the right ureteral stent, which was orthotopic in location, was noted. It was grasp ed using an alligator grasper and delivered to the meatus leaving the tip of the stent in the mid dis david ureter. Fluoroscopic guidance was then used to pass a Sensor wire up the stent and beyond a poin t of proximal stent obstruction likely due to encrustation and navigate the stent into the putative r enal pelvis. Over the Sensor wire, a dual-lumen catheter was then passed and a retrograde pyelogram was then performed. Right retrograde pyelography: Using a 70:30 mixture of Omnipaque and saline, contrast was injected via the second lumen of the dual -lumen catheter and did propagate up a relatively nondilated ureter into a nondilated renal pelvis an d the calices where the wire was observed to coil within the upper pole. As such, I passed a [employer] guidewire via the second lumen of the dual-lumen catheter and coiled alongside the Sensor wire. I t monroe removed the dual-lumen catheter and passed a digital flexible ureteroscope with ease over the Omar tson wire into the upper pole of the kidney. I then surveyed each of the calices of the [facility] for the 3 mm stone seen on preoperative CT. Despite survey of each and every calyx and the entire ty of the renal pelvis, no additional calculus was noted within the kidney. There was a partially ex cluded calyx with a membranous covering over it, which I incised using a 200 nm laser fiber at a padmini r setting of 0.8 joules and 8 hertz. I then surveyed back calyx for any stone and when no stone was seen within it, I backed into the renal pelvis and surveyed down the proximal into the mid and distal ureter before encountering the 5 mm calculus that was previously observed within the proximal ureter . Because the stone was very near to the ureterovesical junction, it was difficult to target with a flexible ureteroscope. So, I retracted the flexible ureteroscope and instead used a semi-rigid urete roscope to gain entry into the ureterovesical junction and visualize and target the stone directly. Again using the same 200 nm laser fiber and at this time with stone dusting settings of 0.4 joules an d 40 hertz, I was able to quickly fragment the 5 mm calculus down to dust smaller than or equal to th e size of the laser fiber. I then surveyed the distal ureter again beyond the point of the stone to ensure no fragments were propagated proximally into the ureter, and when none were noted, I retracted the scope and removed from his body. I then back-loaded the rigid cystoscope over the indwelling sa fety wire and passed a 6-Georgian by 26 cm double-J right ureteral stent with a coil observed within th e upper pole of the right kidney and 1 cystoscopically formed within the bladder. The stent was left on its tether, and the bladder was decompressed. I then attached the tether using Mastisol and Ster i-Strips to the glans penis. The patient was then taken out of the lithotomy position, awakened from general anesthesia, transferred to a stretcher, and then transferred to the recovery room in good co ndition. Complications: None. Discharge Disposition: He should follow up in Urology Clinic within the next 3-5 days to have the te thered ureteral stent removed. Subsequent followup will be determined if he is a recurrent stone for danish by the need for metabolic stone profile assess via 2 x 24 hour urine studies and blood work. PATRICK Voice ID: [id number] Report ID: [id number]
--- NOTE | 2021-01-04 14:54 | RAD REPORT ---
EXAM DESCRIPTION: RAD - Urography Retrograde - 01/04/2021 2:04 pm FINDINGS: There were 18 fluoroscopic KUB images obtained during fluoroscopic assisted placement of a right ureteral stent. No suspicious or unexpected findings. Fluoro time was 0.18 minutes.
== END 2021-01-04 10:17 | disposition home or self-care (01) ==
LOC: OR 06:07
PROVIDERS: ATTEND Urology
PROC: 0T768DZ Dilation of Right Ureter with Intraluminal Device, Via Natural or Artificial Opening Endoscopic (ICD-10-PCS; 2021-01-04)
PROC: 0TF68ZZ Fragmentation in Right Ureter, Via Natural or Artificial Opening Endoscopic (ICD-10-PCS; principal; 2021-01-04 07:30)
DX: N20.1 Calculus of ureter (principal); N20.0 Calculus of kidney; N17.9 Acute kidney failure, unspecified; Z20.822 Contact with and (suspected) exposure to COVID-19
CPT/HCPCS: 52356; 87088; 87086; 80048; 36415; 74420; U0003; J2704 ×2; J0330; J1580; J2250; J3010 ×2; J7120; J0290

== ENCOUNTER 2021-11-23 08:13 | Day surgery (SDC) | payer OTHER ==
--- NOTE | 2021-11-22 15:02 | RAD REPORT ---
EXAM DESCRIPTION: RAD - Chest Pa And Lat (2 Views) - 11/22/2021 2:50 pm CLINICAL HISTORY: Pre op pending cholecystectomy COMPARISON: Abdomen 1 View (KUB) dated 04/12/2021; Chest Pa And Lat (2 Views) dated 10/15/2020; Chest Pa And Lat (2 Views) dated 02/25/2016; CHEST SINGLE VIEW dated 10/27/2014 FINDINGS: Lines: None. Lungs: No evidence of edema or pneumonia. Pleural: No significant pleural effusions or pneumothorax. Cardiac: The heart size is within normal limits. Mediastinum: Within normal limits. Bones: No acute fractures. Other: None IMPRESSION: No acute cardiopulmonary disease.
[2021-11-22 15:12] LABS: Absolute Lymphocytes (CBC) 1.9 K/uL (0.7-4.9); Hematocrit 43.4 % (39.6-49.0); Lymphocytes % 22.7 % (15.3-44.8); MCV 88.3 fL (80-100); MPV 7.8 fL (7.6-11.3); RBC Red Blood Cell Count 4.91 M/uL (4.33-5.43)
[2021-11-22 15:33] LABS: SARS-CoV-2 Antigen Rapid Res Negative (Negative)
[2021-11-22 15:35] LABS: Albumin 3.8 g/dL (3.4-5.0); Bilirubin Direct 0.2 mg/dL (0-0.2); Bilirubin Total 0.6 mg/dL (0.2-1.0); Potassium 4.3 mmol/L (3.5-5.1); Protein, Total 7.1 g/dL (6.4-8.2)
[2021-11-23] MEDS ORDERED: CEFOXITIN SODIUM 1 GM/VIAL ONE (08:28)
[2021-11-23] MEDS ORDERED: Ringers Lactate 1,000 ML IV ONE (08:28)
[2021-11-23] MEDS ORDERED: ACETAMINOPHEN 500 MG TAB ONE (08:59)
[2021-11-23] MEDS ORDERED: CELECOXIB 100 MG CAPSULE ONE (09:00)
[2021-11-23] MEDS ORDERED: propofoL 200 MG/20 ML VIAL IV ONE (09:10)
[2021-11-23] MEDS ORDERED: LIDOCAINE 2% MPF 5 ML VIAL ONE (09:10)
[2021-11-23] MEDS ORDERED: MIDAZOLAM HCL 2 MG/2 ML INJ ONE (09:10)
[2021-11-23] MEDS ORDERED: GLYCOPYRROLATE 0.2 MG/ML SYR ONE (09:11)
[2021-11-23] MEDS ORDERED: FENTANYL CITR 250 MCG/5 ML ONE (09:11)
[2021-11-23] MEDS ORDERED: ROCURONIUM 50 MG/5 ML VIAL IV ONE (09:12)
[2021-11-23] MEDS ORDERED: ONDANSETRON 4 MG/2 ML VIAL ONE (09:16)
[2021-11-23] MEDS ORDERED: NEOSTIGMINE 1 MG/ML -10 ML VIAL ONE (09:16)
[2021-11-23] MEDS ORDERED: EPHEDRINE SULF 50 MG/ML VIAL ONE (09:59)
--- NOTE | 2021-11-23 10:34 | P.BOP ---
Preoperative diagnosis: symptomatic cholelithiasis, RUQ abd pain, cholecystitis Postoperative diagnosis: same Primary procedure: Laparoscopic cholecystectomy Market Research Assistant: sandhya Car) Estimated blood loss: <10cc Specimen: gb Findings: as above Anesthesia: General Complications: None Transferred to: Recovery Room Condition: Good
[2021-11-23] MEDS: MEPERIDINE HCL 25 MG/ML SYR ONE ×2 (10:38→10:43)
[2021-11-23] MEDS ORDERED: EPINEPHRINE INH 0.5 ML VIAL IH ONE (10:46)
[2021-11-23] MEDS ORDERED: dexAMETHasone 10 MG/ML VIAL ONE (10:49)
[2021-11-23] MEDS: HYDROMORPHONE HCL 1 MG/ML INJ ONE ×9 (10:51→11:32)
[2021-11-23] MEDS ORDERED: KETOROLAC 30 MG/ML INJ ONE (11:01)
--- NOTE | 2021-11-23 12:49 | EKG ---
Test Date: 2021-11-22 Test Time: 14:37:49 Deicer Repairer: MALDONADO MEASUREMENT RESULTS: Intervals: Rate: 54 TN: 160 QRSD: 90 QT: 416 QTc: 394 [place]: P: 24 TN: 160 QRS: 38 T: 40 INTERPRETIVE STATEMENTS: Sinus bradycardia Otherwise normal ECG Compared to ECG 12/03/2020 10:35:38 No significant changes Electronically Signed On 11-23-21 12:48:22 CDT by Colby Vasquez
--- NOTE | 2021-11-23 13:46 | OP ---
Date of Procedure: 11/23/2021 Surgeon: Bebo Pagan MD Product Analyst: Kimberly Laird. Preoperative Diagnoses: Symptomatic cholelithiasis, right upper quadrant abdominal pain, cholecystit is. Postoperative Diagnoses: Symptomatic cholelithiasis, right upper quadrant abdominal pain, cholecysti tis. Procedure: Laparoscopic cholecystectomy Estimated Blood Loss: Less than 10 cc. Specimen: Gallbladder. Anesthesia: General plus local. Complications: None. Indication: This is the case of a male, who comes to us with above diagnosis. Fully explained the b enefits, alternatives, and risks of laparoscopic, possible open cholecystectomy, which include, but n ot limited to infection, bleeding, damage to adjacent structures, anesthesia complication, [place] and mamie n . He also understands this may not relieve any symptoms. He might need more than one surgica l intervention. He understood, signed a consent. Procedure In Detail: The patient was brought to the operating room, placed in supine position. Anes thesia was done without complication. Abdominal area was prepped and draped in the usual sterile fas hion. Marcaine 0.5% was injected for local anesthetic followed by sharp incision of the skin in the infraumbilical region. The incision was carried down to fascia, which was opened under direct vision . Peritoneum was encountered, opened under direct vision. Vicryl #1 placed inside the fascia. Triston on trocar was carefully introduced. Pneumoperitoneum was obtained. I placed 3 more trocars under di rect visualization, 5 mm each one of them in the right upper quadrant. This allowed me to put a gras per in the fundus of the gallbladder, another grasper in the infundibulum, retracting the gallbladder in the inferolateral fashion, exposing the triangle of Calot, obtaining critical view. Cystic duct and cystic artery were clearly isolated, freed circumferentially and a connection between those and t he gallbladder were clearly identified. I proceeded to ligate those by using at least 3 clips proxim al, 1 clip distal, ligation in middle and the cystic artery was also ligated with 2 clips proximal, 1 clip distal, ligation in middle and the gallbladder was removed from liver using Bovie cauterizer an d removed from abdominal cavity using EndoCatch through the umbilical incision. The area was inspect ed once again. Clips were intact. No bile leak. No bleeding. At that moment, I proceeded to remov e the trocars under direct vision. Deflated pneumoperitoneum. Closed the fascia with #1 Vicryl. Ir rigated the subcutaneous tissue, closed that with 3-0 chromic and skin in a subcuticular fashion with 3-0 chromic and Steri-Strips on top. Sponge count, instrument counts correct. The patient tolerate d the procedure well. The patient was sent to recovery in stable condition. EDWAR/BORIS Voice ID: [id number] Report ID: [id number]
--- NOTE | 2021-11-23 13:52 | DS ---
Diagnoses: Symptomatic cholelithiasis, right upper quadrant abdominal pain, cholecystitis. Procedure: Laparoscopic cholecystectomy. Disposition: Home. Activity: As tolerated. No heavy lifting. Plan: Followup in my office in 1 week. Call for appointment at [phone]. Keep area dry for 48 hour s, then may shower. Keep Steri-Strips intact. Medications: See orders. EDWAR/BORIS Voice ID: [id number] Report ID: [id number]
[2021-11-23] MEDS ORDERED: SCOPOLAMINE HYDROBROMIDE PATCH TD ONE (14:38)
[2021-11-23 14:51] VITALS: BP 126/54; O2SAT 98
== END 2021-11-23 14:45 | disposition home or self-care (01) ==
LOC: OR 08:13
PROVIDERS: ATTEND Surgery
PROC: 0FT44ZZ Resection of Gallbladder, Percutaneous Endoscopic Approach (ICD-10-PCS; principal; 2021-11-23 10:15)
DX: K80.10 Calculus of gallbladder with chronic cholecystitis without obstruction (principal); Z20.822 Contact with and (suspected) exposure to COVID-19
CPT/HCPCS: 36415; 71046; 80048; 80076; 82150; 83690; 85025; 87811; 88304; 93005; J0694; J1100; J1170; J2001; J2175; J2250; J2405; J2704; J2710; J3010; J7120

== ENCOUNTER → 2023-05-24 | Emergency (ER) | payer OTHER ==
[~2023-05-24] MED LIST: KETOROLAC 30 MG/ML INJ ONE; NA CHLORIDE 0.9% 500 ML ONE; ONDANSETRON 4 MG/2 ML VIAL ONE
--- OUTSIDE RECORDS SUMMARY | 2023-05-24 19:59 | XMS REPORT | Continuity of Care Document ---
Author Name Unknown Address [address] [facility] [address] [place] [address] [facility] thconnect Address [address] [facility] [address] [place] [address] Care Team Providers Care [employer] Ship[employer] Operator Name Role Phone Jeison Elizondo Attending Clinician Unavailable Fransisco Miller Attending Clinician Unavailable Chuy Tipton Attending Clinician Unavailable Fransisco Miller Admitting Clinician Unavailable Problems Condition Name Condition Details Condition Category Status Onset Date Resolution Date Last Treatment Date Treating Clinician Comments Source [id number] Morbid (severe) obesity due to excess calories Problem [facility] [id number] Calculus of gallbladde r without cholecysti tis without obstructio n Problem [facility] Gallstone Gallstone Problem [facility] [id number] Other chronic pain Problem [facility] [id number] Pacemaker Problem [facility] [id number] History of nephrolith iasis Problem [facility] Nephrolith iasis Bilateral nephrolith iasis Problem [facility] [id number] RUQ pain Problem [facility] [id number] Primary osteoarthr itis of right knee Problem [facility] [id number] Mixed hyperlipid emia Problem [facility] [id number] Primary osteoarthr itis of left knee Problem [facility] [id number] PSA elevation Problem [facility] [id number] Scrotal pain Problem [facility] Arthritis of both knees Arthritis of both knees Problem [facility] [id number] GERD without esophagiti s Problem [facility] [id number] Hyperurico suria Problem [facility] [id number] Family history of prostate cancer Problem [facility] [id number] Right flank pain Problem [facility] Allergic rhinitis Non-season al allergic rhinitis, unspecifie d trigger Problem [facility] [id number] Nephrouret erolithias is Problem [facility] [id number] Recurrent nephrolith iasis Problem [facility] [id number] Bladder spasm Problem [facility] [id number] [facility] 830137582 Hypocitrat uria Problem [facility] [id number] Ureterolit hiasis Problem [facility] Iron deficiency anemia Other iron deficiency anemias Problem [facility] [id number] Body mass index [BMI] 32.0-32.9, adult Problem [facility] [id number] Essential hypertensi on Problem [facility] [id number] Right testicular pain Problem [facility] [id number] Right lower quadrant pain Problem [facility] Constipati on Constipati on Problem [facility] Social History Social Habit Start Date Stop Date Quantity Comments Source History of Tobacco Use [facility] Sex Assigned At [facility] Smoking Status Start Date Stop Date Source Former Smoker 2023-05-07 00:00:00 2023-05-07 00:00:00 [facility] Medications Ordered Medication Name Filled Medication Name Start Date Stop Date Current Medication? Ordering Clinician Indication Dosage Frequency Signature (SIG) Comments Components Source Benzonatate 200 MG Benzonatate 200 MG 2022-03 00:00: 00 No 1{capsu le} TID Benzonatat e 200 MG Tamiflu 75 MG Tamiflu 75 MG 2022-03 00:00: 00 No 1{capsu le} BID Tamiflu 75 MG Benzonatate 200 MG Benzonatate 200 MG 2022-03 00:00: 00 No 1{capsu le} TID Benzonatat e 200 MG Tamiflu 75 MG Tamiflu 75 MG 2022-03 00:00: 00 No 1{capsu le} BID Tamiflu 75 MG Benzonatate 200 MG Benzonatate 200 MG 2022-03 00:00: 00 No 1{capsu le} TID Benzonatat e 200 MG Tamiflu 75 MG Tamiflu 75 MG 2022-03 00:00: 00 No 1{capsu le} BID Tamiflu 75 MG Benzonatate 200 MG Benzonatate 200 MG 2022-03 00:00: 00 No 1{capsu le} TID Benzonatat e 200 MG Tamiflu 75 MG Tamiflu 75 MG 2022-03 00:00: 00 No 1{capsu le} BID Tamiflu 75 MG Benzonatate 200 MG Benzonatate 200 MG 2022-03 00:00: 00 No 1{capsu le} TID Benzonatat e 200 MG Tamiflu 75 MG Tamiflu 75 MG 2022-03 00:00: 00 No 1{capsu le} BID Tamiflu 75 MG Benzonatate 200 MG Benzonatate 200 MG 2022-03 00:00: 00 No 1{capsu le} TID Benzonatat e 200 MG Tamiflu 75 MG Tamiflu 75 MG 2022-03 00:00: 00 No 1{capsu le} BID Tamiflu 75 MG Benzonatate 200 MG Benzonatate 200 MG 2022-03 00:00: 00 No 1{capsu le} TID Benzonatat e 200 MG Tamiflu 75 MG Tamiflu 75 MG 2022-03 00:00: 00 No 1{capsu le} BID Tamiflu 75 MG Benzonatate 200 MG Benzonatate 200 MG 2022-03 00:00: 00 No 1{capsu le} TID Benzonatat e 200 MG Tamiflu 75 MG Tamiflu 75 MG 2022-03 1- 00:00: 00 No 1{capsu le} BID Tamiflu 75 MG Benzonatate 200 MG Benzonatate 200 MG 2022-03 00:00: 00 No 1{capsu le} TID Benzonatat e 200 MG Tamiflu 75 MG Tamiflu 75 MG 2022-03 00:00: 00 No 1{capsu le} BID Tamiflu 75 MG Benzonatate 200 MG Benzonatate 200 MG 2022-03 00:00: 00 No 1{capsu le} TID Benzonatat e 200 MG Tamiflu 75 MG Tamiflu 75 MG 2022-03 00:00: 00 No 1{capsu le} BID Tamiflu 75 MG Allopurinol 100 MG Allopurinol 100 MG 3-0 14 00:00: 00 No 1{table t} QD Allopurino l 100 MG Allopurinol 100 MG Allopurinol 100 MG 3-0 14 00:00: 00 No 1{table t} QD Allopurino l 100 MG Allopurinol 100 MG Allopurinol 100 MG 3-0 14 00:00: 00 No 1{table t} QD Allopurino l 100 MG Allopurinol 100 MG Allopurinol 100 MG 3-0 -14 00:00: 00 No 1{table t} QD Allopurino l 100 MG Allopurinol 100 MG Allopurinol 100 MG 3-0 14 00:00: 00 No 1{table t} QD Allopurino l 100 MG Allopurinol 100 MG Allopurinol 100 MG 3-0 -14 00:00: 00 No 1{table t} QD Allopurino l 100 MG Allopurinol 100 MG Allopurinol 100 MG 3-0 -14 00:00: 00 No 1{table t} QD Allopurino l 100 MG Allopurinol 100 MG Allopurinol 100 MG 3-0 -14 00:00: 00 No 1{table t} QD Allopurino l 100 MG Allopurinol 100 MG Allopurinol 100 MG 0 14 00:00: 00 No 1{table t} QD Allopurino l 100 MG Allopurinol 100 MG Allopurinol 100 MG 0 14 00:00: 00 No 1{table t} QD Allopurino l 100 MG Allopurinol 100 MG Allopurinol 100 MG 0 14 00:00: 00 No 1{table t} QD Allopurino l 100 MG Allopurinol 100 MG Allopurinol 100 MG 0 14 00:00: 00 No 1{table t} QD Allopurino l 100 MG Ketorolac 15mg Ketorolac 15mg 2021-03 2 00:00: 00 No 60mg [facility] Kenalog (Triamcinol one) Kenalog (Triamcinol one) 2021-03 2 00:00: 00 No 40mg [facility] Ketorolac 15mg Ketorolac 15mg 2021-03 2 00:00: 00 No 60mg [facility] Kenalog (Triamcinol one) Kenalog (Triamcinol one) 2021-03 2 00:00: 00 No 40mg [facility] Ketorolac 15mg Ketorolac 15mg 2021-03 2 00:00: 00 No 60mg [facility] Kenalog (Triamcinol one) Kenalog (Triamcinol one) 2021-03 2- 00:00: 00 No 40mg [facility] Ketorolac 15mg Ketorolac 15mg 2021-03 2- 00:00: 00 No 60mg [facility] Kenalog (Triamcinol one) Kenalog (Triamcinol one) 2021-03 2- 00:00: 00 No 40mg [facility] Ketorolac 15mg Ketorolac 15mg 2021-03 2- 00:00: 00 No 60mg [facility] Kenalog (Triamcinol one) Kenalog (Triamcinol one) 2021-03 2 00:00: 00 No 40mg [facility] Ketorolac 15mg Ketorolac 15mg 2021-03 2 00:00: 00 No 60mg [facility] Kenalog (Triamcinol one) Kenalog (Triamcinol one) 2021-03 2- 00:00: 00 No 40mg [facility] Ketorolac 15mg Ketorolac 15mg 2021-03 2- 00:00: 00 No 60mg [facility] Kenalog (Triamcinol one) Kenalog (Triamcinol one) 2021-03 2 00:00: 00 No 40mg [facility] Ketorolac 15mg Ketorolac 15mg 2021-03 2 00:00: 00 No 60mg [facility] Kenalog (Triamcinol one) Kenalog (Triamcinol one) 2021-03 2 00:00: 00 No 40mg [facility] Ketorolac 15mg Ketorolac 15mg 2021-03 2 00:00: 00 No 60mg [facility] Kenalog (Triamcinol one) Kenalog (Triamcinol one) 2021-03 2 00:00: 00 No 40mg [facility] Ketorolac 15mg Ketorolac 15mg 2021-03 2 00:00: 00 No 60mg [facility] Kenalog (Triamcinol one) Kenalog (Triamcinol one) 2021-03 2- 00:00: 00 No 40mg [facility] Ketorolac 15mg Ketorolac 15mg 2021-03 2- 00:00: 00 No 60mg [facility] Kenalog (Triamcinol one) Kenalog (Triamcinol one) 2021-03 2- 00:00: 00 No 40mg [facility] Ketorolac 15mg Ketorolac 15mg 2021-03 2- 00:00: [address] [facility] Kenalog (Triamcinol one) Kenalog (Triamcinol one) 2021-03 2 00:00: [address] [facility] Ketorolac 15mg Ketorolac 15mg 2021-03 00:00: [address] [facility] Kenalog (Triamcinol one) Kenalog (Triamcinol one) 2021-03 00:00: [address] [facility] Allopurinol 100 MG Allopurinol 100 MG - 00:00: 00 09-14 00:00 :00 No 1{table t} QD Allopurino l 100 MG Allopurinol 100 MG Allopurinol 100 MG 06-16 00:00: 00 09-14 00:00 :00 No 1{table t} QD Allopurino l 100 MG Allopurinol 100 MG Allopurinol 100 MG 06-16 00:00: 00 09-14 00:00 :00 No 1{table t} QD Allopurino l 100 MG Allopurinol 100 MG Allopurinol 100 MG 06-16 00:00: 00 09-14 00:00 :00 No 1{table t} QD Allopurino l 100 MG Allopurinol 100 MG Allopurinol 100 MG 06-16 00:00: 00 09-14 00:00 :00 No 1{table t} QD Allopurino l 100 MG Allopurinol 100 MG Allopurinol 100 MG 06-16 00:00: 00 09-14 00:00 :00 No 1{table t} QD Allopurino l 100 MG Potassium Citrate ER 5 MEQ (540 MG) Potassium Citrate ER 5 MEQ (540 MG) 2020-03 00:00: 00 No 1{table t_with_ meals} TID Potassium Citrate ER 5 MEQ (540 MG) Potassium Citrate ER 5 MEQ (540 MG) Potassium Citrate ER 5 MEQ (540 MG) 2020-03 00:00: 00 No 1{table t_with_ meals} TID Potassium Citrate ER 5 MEQ (540 MG) Potassium Citrate ER 5 MEQ (540 MG) Potassium Citrate ER 5 MEQ (540 MG) 2020-03 00:00: 00 No 1{table t_with_ meals} TID Potassium Citrate ER 5 MEQ (540 MG) Potassium Citrate ER 5 MEQ (540 MG) Potassium Citrate ER 5 MEQ (540 MG) 2020-03 00:00: 00 No 1{table t_with_ meals} TID Potassium Citrate ER 5 MEQ (540 MG) Potassium Citrate ER 5 MEQ (540 MG) Potassium Citrate ER 5 MEQ (540 MG) 2020-03 00:00: 00 No 1{table t_with_ meals} TID Potassium Citrate ER 5 MEQ (540 MG) Potassium Citrate ER 5 MEQ (540 MG) Potassium Citrate ER 5 MEQ (540 MG) 2020-03 00:00: 00 No 1{table t_with_ meals} TID Potassium Citrate ER 5 MEQ (540 MG) Potassium Citrate ER 5 MEQ (540 MG) Potassium Citrate ER 5 MEQ (540 MG) 2020-03 00:00: 00 No 1{table t_with_ meals} TID Potassium Citrate ER 5 MEQ (540 MG) Potassium Citrate ER 5 MEQ (540 MG) Potassium Citrate ER 5 MEQ (540 MG) 2020-03 00:00: 00 No 1{table t_with_ meals} TID Potassium Citrate ER 5 MEQ (540 MG) Potassium Citrate ER 5 MEQ (540 MG) Potassium Citrate ER 5 MEQ (540 MG) 2020-03 00:00: 00 No 1{table t_with_ meals} TID Potassium Citrate ER 5 MEQ (540 MG) Potassium Citrate ER 5 MEQ (540 MG) Potassium Citrate ER 5 MEQ (540 MG) 2020-03 00:00: 00 No 1{table t_with_ meals} TID Potassium Citrate ER 5 MEQ (540 MG) Potassium Citrate ER 5 MEQ (540 MG) Potassium Citrate ER 5 MEQ (540 MG) 2020-03 00:00: 00 No 1{table t_with_ meals} TID Potassium Citrate ER 5 MEQ (540 MG) Potassium Citrate ER 5 MEQ (540 MG) Potassium Citrate ER 5 MEQ (540 MG) 2020-03 00:00: 00 No 1{table t_with_ meals} TID Potassium Citrate ER 5 MEQ (540 MG) Potassium Citrate ER 5 MEQ (540 MG) Potassium Citrate ER 5 MEQ (540 MG) 2020-03 00:00: 00 No 1{table t_with_ meals} TID Potassium Citrate ER 5 MEQ (540 MG) Potassium Citrate ER 5 MEQ (540 MG) Potassium Citrate ER 5 MEQ (540 MG) 2020-03 00:00: 00 No 1{table t_with_ meals} TID Potassium Citrate ER 5 MEQ (540 MG) Potassium Citrate ER 5 MEQ (540 MG) Potassium Citrate ER 5 MEQ (540 MG) 2020-03 00:00: 00 No 1{table t_with_ meals} TID Potassium Citrate ER 5 MEQ (540 MG) Potassium Citrate ER 5 MEQ (540 MG) Potassium Citrate ER 5 MEQ (540 MG) 2020-03 00:00: 00 No 1{table t_with_ meals} TID Potassium Citrate ER 5 MEQ (540 MG) Potassium Citrate ER 5 MEQ (540 MG) Potassium Citrate ER 5 MEQ (540 MG) 2020-03 00:00: 00 No 1{table t_with_ meals} TID Potassium Citrate ER 5 MEQ (540 MG) Potassium Citrate ER 5 MEQ (540 MG) Potassium Citrate ER 5 MEQ (540 MG) 2020-03 00:00: 00 No 1{table t_with_ meals} TID Potassium Citrate ER 5 MEQ (540 MG) Kenalog (Triamcinol one) Kenalog (Triamcinol one) 0 2-06 00:00: 00 No 40mg [facility] Kenalog (Triamcinol one) Kenalog (Triamcinol one) 2019-0 2-06 00:00: 00 No 40mg [facility] Kenalog (Triamcinol one) Kenalog (Triamcinol one) 0 2-06 00:00: 00 No 40mg [facility] Kenalog (Triamcinol one) Kenalog (Triamcinol one) 2019-0 2-06 00:00: 00 No 40mg [facility] Kenalog (Triamcinol one) Kenalog (Triamcinol one) 2020-0 2-06 00:00: 00 No 40mg [facility] Kenalog (Triamcinol one) Kenalog (Triamcinol one) 2019-0 2- 00:00: 00 No 40mg [facility] Kenalog (Triamcinol one) Kenalog (Triamcinol one) 2019-0 2- 00:00: 00 No 40mg [facility] Kenalog (Triamcinol one) Kenalog (Triamcinol one) 2019-0 2- 00:00: 00 No 40mg [facility] Kenalog (Triamcinol one) Kenalog (Triamcinol one) 0 2- 00:00: 00 No 40mg [facility] Kenalog (Triamcinol one) Kenalog (Triamcinol one) 2019-0 2- 00:00: 00 No 40mg [facility] Kenalog (Triamcinol one) Kenalog (Triamcinol one) 2019-0 2- 00:00: 00 No 40mg [facility] Kenalog (Triamcinol one) Kenalog (Triamcinol one) 2019-0 2- 00:00: 00 No 40mg [facility] Kenalog (Triamcinol one) Kenalog (Triamcinol one) 2019-0 2- 00:00: 00 No 40mg [facility] Kenalog (Triamcinol one) Kenalog (Triamcinol one) 2019-0 2-06 00:00: 00 No 40mg [facility] Kenalog (Triamcinol one) Kenalog (Triamcinol one) 2019-0 2-06 00:00: 00 No 40mg [facility] Kenalog (Triamcinol one) Kenalog (Triamcinol one) 2019-0 2-06 00:00: 00 No 40mg [facility] Kenalog (Triamcinol one) Kenalog (Triamcinol one) 2019-0 2-06 00:00: 00 No 40mg [facility] Kenalog (Triamcinol one) Kenalog (Triamcinol one) 2019-0 2-06 00:00: 00 No 40mg [facility] Kenalog (Triamcinol one) Kenalog (Triamcinol one) 2020-0 2-06 00:00: 00 No 40mg [facility] Kenalog (Triamcinol one) Kenalog (Triamcinol one) 2019-0 2-06 00:00: 00 No 40mg [facility] Kenalog (Triamcinol one) Kenalog (Triamcinol one) 2019-0 2- 00:00: 00 No 40mg [facility] Kenalog (Triamcinol one) Kenalog (Triamcinol one) 2019-0 2- 00:00: 00 No 40mg [facility] Kenalog (Triamcinol one) Kenalog (Triamcinol one) 2019-0 2-06 00:00: 00 No 40mg [facility] Kenalog (Triamcinol one) Kenalog (Triamcinol one) 2019-0 2- 00:00: 00 No 40mg [facility] Kenalog (Triamcinol one) Kenalog (Triamcinol one) 2019-0 2-06 00:00: 00 No 40mg [facility] Kenalog (Triamcinol one) Kenalog (Triamcinol one) 2020-0 2-06 00:00: 00 No 40mg [facility] Kenalog (Triamcinol one) Kenalog (Triamcinol one) 2019-0 2-06 00:00: 00 No 40mg [facility] Kenalog (Triamcinol one) Kenalog (Triamcinol one) 2020-0 2-06 00:00: 00 No 40mg [facility] Kenalog (Triamcinol one) Kenalog (Triamcinol one) 2019-0 2-06 00:00: 00 No 40mg [facility] Losartan Potassium 25 MG Losartan Potassium 25 MG No 1{table t} QD Losartan Potassium 25 MG Losartan Potassium 25 MG Losartan Potassium 25 MG No Losartan Potassium 25 MG Multivitami n - Multivitami n - No 1{table t} QD Multivitam in - Omeprazole 40 MG Omeprazole 40 MG No Omeprazole 40 MG Omeprazole 40 MG Omeprazole 40 MG No QD Omeprazole 40 MG Losartan Potassium 25 MG Losartan Potassium 25 MG No 1{table t} QD [place]artan Potassium 25 MG [place]artan Potassium 25 MG Losartan Potassium 25 MG No Losartan Potassium 25 MG Multivitami n - Multivitami n - No 1{table t} QD Multivitam in - Omeprazole 40 MG Omeprazole 40 MG No Omeprazole 40 MG Omeprazole 40 MG Omeprazole 40 MG No QD Omeprazole 40 MG [place]artan Potassium 25 MG Losartan Potassium 25 MG No 1{table t} QD [place]artan Potassium 25 MG [place]artan Potassium 25 MG Losartan Potassium 25 MG No Losartan Potassium 25 MG Multivitami n - Multivitami n - No 1{table t} QD Multivitam in - Omeprazole 40 MG Omeprazole 40 MG No Omeprazole 40 MG Omeprazole 40 MG Omeprazole 40 MG No QD Omeprazole 40 MG [place]artan Potassium 25 MG Losartan Potassium 25 MG No 1{table t} QD [place]artan Potassium 25 MG [place]artan Potassium 25 MG [place]artan Potassium 25 MG No Losartan Potassium 25 MG Multivitami n - Multivitami n - No 1{table t} QD Multivitam in - Omeprazole 40 MG Omeprazole 40 MG No Omeprazole 40 MG Omeprazole 40 MG Omeprazole 40 MG No QD Omeprazole 40 MG [place] Potassium 25 MG Losartan Potassium 25 MG No 1{table t} QD [place]artan Potassium 25 MG [place]artan Potassium 25 MG [place]artan Potassium 25 MG No Losartan Potassium 25 MG Multivitami n - Multivitami n - No 1{table t} QD Multivitam in - Omeprazole 40 MG Omeprazole 40 MG No Omeprazole 40 MG Omeprazole 40 MG Omeprazole 40 MG No QD Omeprazole 40 MG Multivitami n - Multivitami n - No 1{table t} QD Multivitam in - Losartan Potassium 25 MG Losartan Potassium 25 MG No Losartan Potassium 25 MG Omeprazole 40 MG Omeprazole 40 MG No QD Omeprazole 40 MG [place] Potassium 25 MG [place]artan Potassium 25 MG No Losartan Potassium 25 MG Multivitami n - Multivitami n - No 1{table t} QD Multivitam in - Omeprazole 40 MG Omeprazole 40 MG No QD Omeprazole 40 MG [place]artan Potassium 25 MG [place]artan Potassium 25 MG No Losartan Potassium 25 MG Multivitami n - Multivitami n - No 1{table t} QD Multivitam in - Omeprazole 40 MG Omeprazole 40 MG No QD Omeprazole 40 MG [place]artan Potassium 25 MG Losartan Potassium 25 MG No Losartan Potassium 25 MG Multivitami n - Multivitami n - No 1{table t} QD Multivitam in - Omeprazole 40 MG Omeprazole 40 MG No QD Omeprazole 40 MG [place]artan Potassium 25 MG Losartan Potassium 25 MG No Losartan Potassium 25 MG Multivitami n - Multivitami n - No 1{table t} QD Multivitam in - Omeprazole 40 MG Omeprazole 40 MG No Omeprazole 40 MG [place]artan Potassium 25 MG Losartan Potassium 25 MG No 1{table t} QD [place]artan Potassium 25 MG [place]artan Potassium 25 MG Losartan Potassium 25 MG No Losartan Potassium 25 MG Clopidogrel Bisulfate 75 MG Clopidogrel Bisulfate 75 MG No 1{table t} QD Clopidogre l Bisulfate 75 MG Omeprazole 40 MG Omeprazole 40 MG No Omeprazole 40 MG Omeprazole 40 MG Omeprazole 40 MG No QD Omeprazole 40 MG Simvastatin 40 MG Simvastatin 40 MG No 1{table t_in_th e_eveni ng} QD Simvastati n 40 MG Multivitami n - Multivitami n - No 1{table t} QD Multivitam in - Losartan Potassium 25 MG Losartan Potassium 25 MG No 1{table t} QD Losartan Potassium 25 MG Omeprazole 40 MG Omeprazole 40 MG No QD Omeprazole 40 MG Clopidogrel Bisulfate 75 MG Clopidogrel Bisulfate 75 MG No 1{table t} QD Clopidogre l Bisulfate 75 MG [place]artan Potassium 25 MG [place]artan Potassium 25 MG No Losartan Potassium 25 MG Multivitami n - Multivitami n - No 1{table t} QD Multivitam in - Omeprazole 40 MG Omeprazole 40 MG No Omeprazole 40 MG Simvastatin 40 MG Simvastatin 40 MG No 1{table t_in_th e_eveni ng} QD Simvastati n 40 MG Simvastatin 40 MG Simvastatin 40 MG No 1{table t_in_th e_eveni ng} QD Simvastati n 40 MG Clopidogrel Bisulfate 75 MG Clopidogrel Bisulfate 75 MG No 1{table t} QD Clopidogre l Bisulfate 75 MG Omeprazole 40 MG Omeprazole 40 MG No Omeprazole 40 MG Multivitami n - Multivitami n - No 1{table t} QD Multivitam in - Losartan Potassium 25 MG Losartan Potassium 25 MG No Losartan Potassium 25 MG Omeprazole 40 MG Omeprazole 40 MG No QD Omeprazole 40 MG [place]artan Potassium 25 MG Losartan Potassium 25 MG No 1{table t} QD [place]artan Potassium 25 MG Simvastatin 40 MG Simvastatin 40 MG No 1{table t_in_th e_eveni ng} QD Simvastati n 40 MG Clopidogrel Bisulfate 75 MG Clopidogrel Bisulfate 75 MG No 1{table t} QD Clopidogre l Bisulfate 75 MG Omeprazole 40 MG Omeprazole 40 MG No Omeprazole 40 MG Multivitami n - Multivitami n - No 1{table t} QD Multivitam in - Losartan Potassium 25 MG Losartan Potassium 25 MG No Losartan Potassium 25 MG Omeprazole 40 MG Omeprazole 40 MG No QD Omeprazole 40 MG [place]artan Potassium 25 MG Losartan Potassium 25 MG No 1{table t} QD [place]artan Potassium 25 MG Losartan Potassium 25 MG Losartan Potassium 25 MG No 1{table t} QD Losartan Potassium 25 MG Multivitami n - Multivitami n - No 1{table t} QD Multivitam in - Cyclobenzap rine HCl 10 MG Cyclobenzap rine HCl 10 MG No 1{table t_at_be dtime_a s_neede d} QD Cyclobenza harrison HCl 10 MG Simvastatin 40 MG Simvastatin 40 MG No 1{table t_in_th e_eveni ng} QD Simvastati n 40 MG Omeprazole 40 MG Omeprazole 40 MG No Omeprazole 40 MG Clopidogrel Bisulfate 75 MG Clopidogrel Bisulfate 75 MG No 1{table t} QD Clopidogre l Bisulfate 75 MG [place]artan Potassium 25 MG Losartan Potassium 25 MG No QD Losartan Potassium 25 MG Simvastatin 40 MG Simvastatin 40 MG No 1{table t_in_th e_eveni ng} QD Simvastati n 40 MG Omeprazole 40 MG Omeprazole 40 MG No Omeprazole 40 MG Carvedilol 6.25 MG Carvedilol 6.25 MG No 1{table t_with_ food} BID Carvedilol 6.25 MG Atorvastati n Calcium 80 MG Atorvastati n Calcium 80 MG No 1{table t} QD Atorvastat in Calcium 80 MG Omeprazole 40 MG Omeprazole 40 MG No QD Omeprazole 40 MG Cyclobenzap rine HCl 10 MG Cyclobenzap rine HCl 10 MG No 1{table t_at_be dtime_a s_neede d} QD Cyclobenza harrison HCl 10 MG Multivitami n - Multivitami n - No 1{table t} QD Multivitam in - Clopidogrel Bisulfate 75 MG Clopidogrel Bisulfate 75 MG No 1{table t} QD Clopidogre l Bisulfate 75 MG Losartan Potassium 25 MG Losartan Potassium 25 MG No 1{table t} QD Losartan Potassium 25 MG Valsartan 40 MG Valsartan 40 MG No 1{table t} BID Valsartan 40 MG Multivitami n - Multivitami n - No 1{table t} QD Multivitam in - Atorvastati n Calcium 80 MG Atorvastati n Calcium 80 MG No 1{table t} QD Atorvastat in Calcium 80 MG Omeprazole 40 MG Omeprazole 40 MG No Omeprazole 40 MG Breo Ellipta Breo Ellipta No Breo Ellipta Carvedilol 12.5 MG Carvedilol 12.5 MG No 1{table t_with_ food} BID Carvedilol 12.5 MG Losartan Potassium 25 MG Losartan Potassium 25 MG No 1{table t} QD Losartan Potassium 25 MG Omeprazole 40 MG Omeprazole 40 MG No QD Omeprazole 40 MG Mens Multivitami n Mens Multivitami n No Mens Multivitam in Valsartan 40 MG Valsartan 40 MG No 1{table t} BID Valsartan 40 MG Multivitami n - Multivitami n - No 1{table t} QD Multivitam in - Omeprazole 40 MG Omeprazole 40 MG No Omeprazole 40 MG Losartan Potassium 25 MG Losartan Potassium 25 MG No Losartan Potassium 25 MG Mens Multivitami n Mens Multivitami n No Mens Multivitam in Atorvastati n Calcium 80 MG Atorvastati n Calcium 80 MG No 1{table t} QD Atorvastat in Calcium 80 MG Omeprazole 40 MG Omeprazole 40 MG No QD Omeprazole 40 MG Breo Ellipta Breo Ellipta No Breo Ellipta Carvedilol 12.5 MG Carvedilol 12.5 MG No 1{table t_with_ food} BID Carvedilol 12.5 MG Valsartan 40 MG Valsartan 40 MG No 1{table t} BID Valsartan 40 MG Multivitami n - Multivitami n - No 1{table t} QD Multivitam in - Omeprazole 40 MG Omeprazole 40 MG No Omeprazole 40 MG Losartan Potassium 25 MG Losartan Potassium 25 MG No Losartan Potassium 25 MG Mens Multivitami n Mens Multivitami n No Mens Multivitam in Atorvastati n Calcium 80 MG Atorvastati n Calcium 80 MG No 1{table t} QD Atorvastat in Calcium 80 MG Omeprazole 40 MG Omeprazole 40 MG No QD Omeprazole 40 MG Breo Ellipta Breo Ellipta No Breo Ellipta Carvedilol 12.5 MG Carvedilol 12.5 MG No 1{table t_with_ food} BID Carvedilol 12.5 MG Valsartan 40 MG Valsartan 40 MG No 1{table t} BID Valsartan 40 MG Multivitami n - Multivitami n - No 1{table t} QD Multivitam in - Omeprazole 40 MG Omeprazole 40 MG No Omeprazole 40 MG Losartan Potassium 25 MG Losartan Potassium 25 MG No Losartan Potassium 25 MG Mens Multivitami n Mens Multivitami n No Mens Multivitam in Atorvastati n Calcium 80 MG Atorvastati n Calcium 80 MG No 1{table t} QD Atorvastat in Calcium 80 MG Omeprazole 40 MG Omeprazole 40 MG No QD Omeprazole 40 MG Breo Ellipta Breo Ellipta No Breo Ellipta Carvedilol 12.5 MG Carvedilol 12.5 MG No 1{table t_with_ food} BID Carvedilol 12.5 MG Valsartan 40 MG Valsartan 40 MG No 1{table t} BID Valsartan 40 MG Multivitami n - Multivitami n - No 1{table t} QD Multivitam in - Omeprazole 40 MG Omeprazole 40 MG No Omeprazole 40 MG Losartan Potassium 25 MG Losartan Potassium 25 MG No Losartan Potassium 25 MG Mens Multivitami n Mens Multivitami n No Mens Multivitam in Atorvastati n Calcium 80 MG Atorvastati n Calcium 80 MG No 1{table t} QD Atorvastat in Calcium 80 MG Omeprazole 40 MG Omeprazole 40 MG No QD Omeprazole 40 MG Breo Ellipta Breo Ellipta No Breo Ellipta Carvedilol 12.5 MG Carvedilol 12.5 MG No 1{table t_with_ food} BID Carvedilol 12.5 MG Valsartan 40 MG Valsartan 40 MG No 1{table t} BID Valsartan 40 MG Multivitami n - Multivitami n - No 1{table t} QD Multivitam in - Omeprazole 40 MG Omeprazole 40 MG No Omeprazole 40 MG Losartan Potassium 25 MG Losartan Potassium 25 MG No Losartan Potassium 25 MG Mens Multivitami n Mens Multivitami n No Mens Multivitam in Atorvastati n Calcium 80 MG Atorvastati n Calcium 80 MG No 1{table t} QD Atorvastat in Calcium 80 MG Omeprazole 40 MG Omeprazole 40 MG No QD Omeprazole 40 MG Breo Ellipta Breo Ellipta No Breo Ellipta Carvedilol 12.5 MG Carvedilol 12.5 MG No 1{table t_with_ food} BID Carvedilol 12.5 MG Losartan Potassium 25 MG Losartan Potassium 25 MG No 1{table t} QD Losartan Potassium 25 MG Omeprazole 40 MG Omeprazole 40 MG No QD Omeprazole 40 MG Clopidogrel Bisulfate 75 MG Clopidogrel Bisulfate 75 MG No 1{table t} QD Clopidogre l Bisulfate 75 MG Breo Ellipta Breo Ellipta No Breo Ellipta Multivitami n - Multivitami n - No 1{table t} QD Multivitam in - Atorvastati n Calcium 80 MG Atorvastati n Calcium 80 MG No 1{table t} QD Atorvastat in Calcium 80 MG Valsartan 40 MG Valsartan 40 MG No 1{table t} BID Valsartan 40 MG Losartan Potassium 25 MG Losartan Potassium 25 MG No Losartan Potassium 25 MG Carvedilol 12.5 MG Carvedilol 12.5 MG No 1{table t_with_ food} BID Carvedilol 12.5 MG Losartan Potassium 25 MG Losartan Potassium 25 MG No Losartan Potassium 25 MG Mens Multivitami n Mens Multivitami n No Mens Multivitam in Omeprazole 40 MG Omeprazole 40 MG No QD Omeprazole 40 MG Multivitami n - Multivitami n - No 1{table t} QD Multivitam in - Omeprazole 40 MG Omeprazole 40 MG No Omeprazole 40 MG Breo Ellipta Breo Ellipta No Breo Ellipta Multivitami n - Multivitami n - No 1{table t} QD Multivitam in - Atorvastati n Calcium 80 MG Atorvastati n Calcium 80 MG No 1{table t} QD Atorvastat in Calcium 80 MG Valsartan 40 MG Valsartan 40 MG No 1{table t} BID Valsartan 40 MG Losartan Potassium 25 MG Losartan Potassium 25 MG No Losartan Potassium 25 MG Carvedilol 12.5 MG Carvedilol 12.5 MG No 1{table t_with_ food} BID Carvedilol 12.5 MG Simvastatin 40 MG Simvastatin 40 MG No 1{table t_in_th e_eveni ng} QD Simvastati n 40 MG Mens Multivitami n Mens Multivitami n No Mens Multivitam in Omeprazole 40 MG Omeprazole 40 MG No QD Omeprazole 40 MG Mens Multivitami n Mens Multivitami n No Mens Multivitam in Omeprazole 40 MG Omeprazole 40 MG No QD Omeprazole 40 MG Valsartan 40 MG Valsartan 40 MG No 1{table t} BID Valsartan 40 MG Atorvastati n Calcium 80 MG Atorvastati n Calcium 80 MG No 1{table t} QD Atorvastat in Calcium 80 MG Losartan Potassium 25 MG Losartan Potassium 25 MG No 1{table t} QD Losartan Potassium 25 MG Multivitami n - Multivitami n - No 1{table t} QD Multivitam in - Losartan Potassium 25 MG Losartan Potassium 25 MG No Losartan Potassium 25 MG Carvedilol 12.5 MG Carvedilol 12.5 MG No 1{table t_with_ food} BID Carvedilol 12.5 MG Breo Ellipta Breo Ellipta No Breo Ellipta Carvedilol 12.5 MG Carvedilol 12.5 MG No 1{table t_with_ food} BID Carvedilol 12.5 MG Mens Multivitami n Mens Multivitami n No Mens Multivitam in Multivitami n - Multivitami n - No 1{table t} QD Multivitam in - Losartan Potassium 25 MG Losartan Potassium 25 MG No 1{table t} QD Losartan Potassium 25 MG Breo Ellipta Breo Ellipta No Breo Ellipta Atorvastati n Calcium 80 MG Atorvastati n Calcium 80 MG No 1{table t} QD Atorvastat in Calcium 80 MG Valsartan 40 MG Valsartan 40 MG No 1{table t} BID Valsartan 40 MG Losartan Potassium 25 MG Losartan Potassium 25 MG No Losartan Potassium 25 MG Omeprazole 40 MG Omeprazole 40 MG No QD Omeprazole 40 MG Carvedilol 12.5 MG Carvedilol 12.5 MG No 1{table t_with_ food} BID Carvedilol 12.5 MG Mens Multivitami n Mens Multivitami n No Mens Multivitam in Multivitami n - Multivitami n - No 1{table t} QD Multivitam in - Losartan Potassium 25 MG Losartan Potassium 25 MG No 1{table t} QD Losartan Potassium 25 MG Breo Ellipta Breo Ellipta No Breo Ellipta Atorvastati n Calcium 80 MG Atorvastati n Calcium 80 MG No 1{table t} QD Atorvastat in Calcium 80 MG Valsartan 40 MG Valsartan 40 MG No 1{table t} BID Valsartan 40 MG Losartan Potassium 25 MG Losartan Potassium 25 MG No Losartan Potassium 25 MG Omeprazole 40 MG Omeprazole 40 MG No QD Omeprazole 40 MG Omeprazole 40 MG Omeprazole 40 MG No Omeprazole 40 MG Multivitami n - Multivitami n - No 1{table t} QD Multivitam in - Losartan Potassium 25 MG Losartan Potassium 25 MG No Losartan Potassium 25 MG Immunizations Ordered Immunization Name Filled Immunization Name Date Status Comments Source Flucelvax - single dose syringe Flucelvax - single dose syringe 2022 16:26:[address] [facility] Flucelvax - single dose syringe Flucelvax - single dose syringe 2022 16:26:[address] [facility] Flucelvax - single dose syringe Flucelvax - single dose syringe 2022 16:26:[address] [facility] Flucelvax - single dose syringe Flucelvax - single dose syringe 2022 16:26:[address] [facility] Flucelvax - single dose syringe Flucelvax - single dose syringe 2022 16:26:[address] [facility] Flucelvax - single dose syringe Flucelvax - single dose syringe 2022 16:26:[address] [facility] Boostrix (Tdap) Boostrix (Tdap) 2021-07-13 15:35:[address] [facility] Pneumovax (PPSV23) Pneumovax (PPSV23) 2021-07-13 15:35:[address] [facility] Boostrix (Tdap) Boostrix (Tdap) 2021-07-13 15:35:[address] [facility] Pneumovax (PPSV23) Pneumovax (PPSV23) 2021-07-13 15:35:[address] [facility] Boostrix (Tdap) Boostrix (Tdap) 2021-07-13 15:35:[address] [facility] Pneumovax (PPSV23) Pneumovax (PPSV23) 2021-07-13 15:35:[address] [facility] Boostrix (Tdap) Boostrix (Tdap) 2021-07-13 15:35:[address] [facility] Pneumovax (PPSV23) Pneumovax (PPSV23) 2021-07-13 15:35:[address] [facility] Boostrix (Tdap) Boostrix (Tdap) 2021-07-13 15:35:[address] [facility] Pneumovax (PPSV23) Pneumovax (PPSV23) 2021-07-13 15:35:[address] [facility] Boostrix (Tdap) Boostrix (Tdap) 2021-07-13 15:35:[address] [facility] Pneumovax (PPSV23) Pneumovax (PPSV23) 2021-07-13 15:35:[address] [facility] Boostrix (Tdap) Boostrix (Tdap) 2021-07-13 15:35:[address] [facility] Pneumovax (PPSV23) Pneumovax (PPSV23) 2021-07-13 15:35:[address] [facility] Boostrix (Tdap) Boostrix (Tdap) 2021-07-13 15:35:[address] [facility] Pneumovax (PPSV23) Pneumovax (PPSV23) 2021-07-13 15:35:[address] [facility] Boostrix (Tdap) Boostrix (Tdap) 2021-07-13 15:35:[address] [facility] Pneumovax (PPSV23) Pneumovax (PPSV23) 2021-07-13 15:35:[address] [facility] Boostrix (Tdap) Boostrix (Tdap) 2021-07-13 15:35:[address] [facility] Pneumovax (PPSV23) Pneumovax (PPSV23) 2021-07-13 15:35:[address] [facility] Boostrix (Tdap) Boostrix (Tdap) 2021-07-13 15:35:[address] [facility] Pneumovax (PPSV23) Pneumovax (PPSV23) 2021-07-13 15:35:[address] [facility] Boostrix (Tdap) Boostrix (Tdap) 2021-07-13 15:35:[address] [facility] Pneumovax (PPSV23) Pneumovax (PPSV23) 2021-07-13 15:35:[address] [facility] Boostrix (Tdap) Boostrix (Tdap) 2021-07-13 15:35:[address] [facility] Pneumovax (PPSV23) Pneumovax (PPSV23) 2021-07-13 15:35:[address] [facility] Boostrix (Tdap) Boostrix (Tdap) 2021-07-13 15:35:[address] [facility] Pneumovax (PPSV23) Pneumovax (PPSV23) 2021-07-13 15:35:[address] [facility] Boostrix (Tdap) Boostrix (Tdap) 2021-07-13 15:35:[address] [facility] Pneumovax (PPSV23) Pneumovax (PPSV23) 2021-07-13 15:35:[address] [facility] Boostrix (Tdap) Boostrix (Tdap) 2021-07-13 15:35:[address] [facility] Pneumovax (PPSV23) Pneumovax (PPSV23) 2021-07-13 15:35:[address] [facility] Boostrix (Tdap) Boostrix (Tdap) 2021-07-13 15:35:[address] [facility] Pneumovax (PPSV23) Pneumovax (PPSV23) 2021-07-13 15:35:[address] [facility] Afluria Afluria 2021-01-10 17:00:[address] [facility] Afluria Afluria 2021-01-10 17:00:[address] [facility] Afluria Afluria 2021-01-10 17:00:[address] [facility] Afluria Afluria 2021-01-10 17:00:[address] [facility] Afluria Afluria 2021-01-10 17:00:[address] [facility] Afluria Afluria 2021-01-10 17:00:00 Completed [facility] Afluria Afluria 2021-01-10 17:00:[address] [facility] Afluria Afluria 2021-01-10 17:00:[address] [facility] Afluria Afluria 2021-01-10 17:00:[address] [facility] Afluria Afluria 2021-01-10 17:00:[address] [facility] Afluria Afluria 2021-01-10 17:00:[address] [facility] Afluria Afluria 2021-01-10 17:00:[address] [facility] Afluria Afluria 2021-01-10 17:00:[address] [facility] Afluria Afluria 2021-01-10 17:00:[address] [facility] Afluria Afluria 2021-01-10 17:00:[address] [facility] Afluria Afluria 2021-01-10 17:00:[address] [facility] Afluria Afluria 2021-01-10 17:00:[address] [facility] Afluria Afluria 2021-01-10 17:00:[address] [facility] Afluria single dose Afluria single dose 13:44:[address] [facility] Afluria single dose Afluria single dose 13:44:[address] [facility] Afluria single dose Afluria single dose 13:44:[address] [facility] Afluria single dose Afluria single dose 13:44:[address] [facility] Afluria single dose Afluria single dose 13:44:[address] [facility] Afluria single dose Afluria single dose 13:44:[address] [facility] Afluria single dose Afluria single dose 13:44:[address] [facility] Afluria single dose Afluria single dose 13:44:[address] [facility] Afluria single dose Afluria single dose 13:44:[address] [facility] Afluria single dose Afluria single dose 13:44:[address] [facility] Afluria single dose Afluria single dose 13:44:[address] [facility] Afluria single dose Afluria single dose 13:44:[address] [facility] Afluria single dose Afluria single dose 13:44:[address] [facility] Afluria single dose Afluria single dose 13:44:[address] [facility] Afluria single dose Afluria single dose 13:44:[address] [facility] Afluria single dose Afluria single dose 13:44:[address] [facility] Afluria single dose Afluria single dose 13:44:[address] [facility] Afluria single dose Afluria single dose 13:44:[address] [facility] Flucelvax - multidose vial Flucelvax - multidose vial 2019-01-01 11:16:[address] [facility] Flucelvax - multidose vial Flucelvax - multidose vial 2019-01-01 11:16:[address] [facility] Flucelvax - multidose vial Flucelvax - multidose vial 2019-01-01 11:16:[address] [facility] Flucelvax - multidose vial Flucelvax - multidose vial 2019-01-01 11:16:[address] [facility] Flucelvax - multidose vial Flucelvax - multidose vial 2019-01-01 11:16:[address] [facility] Flucelvax - multidose vial Flucelvax - multidose vial 2019-01-01 11:16:[address] [facility] Flucelvax - multidose vial Flucelvax - multidose vial 2019-01-01 11:16:[address] [facility] Flucelvax - multidose vial Flucelvax - multidose vial 2019-01-01 11:16:[address] [facility] Flucelvax - multidose vial Flucelvax - multidose vial 2019-01-01 11:16:[address] [facility] Flucelvax - multidose vial Flucelvax - multidose vial 2019-01-01 11:16:[address] [facility] Flucelvax - multidose vial Flucelvax - multidose vial 2019-01-01 11:16:[address] [facility] Flucelvax - multidose vial Flucelvax - multidose vial 2019-01-01 11:16:[address] [facility] Flucelvax - multidose vial Flucelvax - multidose vial 2019-01-01 11:16:[address] [facility] Flucelvax - multidose vial Flucelvax - multidose vial 2019-01-01 11:16:[address] [facility] Flucelvax - multidose vial Flucelvax - multidose vial 2019-01-01 11:16:[address] [facility] Flucelvax - multidose vial Flucelvax - multidose vial 2019-01-01 11:16:[address] [facility] Flucelvax - multidose vial Flucelvax - multidose vial 2019-01-01 11:16:[address] [facility] Flucelvax - multidose vial Flucelvax - multidose vial 2019-01-01 11:16:[address] [facility] Afluria single dose Afluria single dose Unknown Completed [facility] Fluarix Fluarix Unknown Completed [facility] Flucelvax - multidose vial Flucelvax - multidose vial Unknown Completed [facility] Afluria Afluria Unknown Completed [facility] Flucelvax - single dose syringe Flucelvax - single dose syringe Unknown Completed [facility] Boostrix (Tdap) Boostrix (Tdap) Unknown Completed [facility] Pneumovax (PPSV23) Pneumovax (PPSV23) Unknown Completed [facility] Afluria single dose Afluria single dose Unknown Completed [facility] Fluarix Fluarix Unknown Completed [facility] Flucelvax - multidose vial Flucelvax - multidose vial Unknown Completed [facility] Afluria Afluria Unknown Completed [facility] Flucelvax - single dose syringe Flucelvax - single dose syringe Unknown Completed [facility] Boostrix (Tdap) Boostrix (Tdap) Unknown Completed [facility] Pneumovax (PPSV23) Pneumovax (PPSV23) Unknown Completed [facility] Afluria single dose Afluria single dose Unknown Completed [facility] Fluarix Fluarix Unknown Completed [facility] Flucelvax - multidose vial Flucelvax - multidose vial Unknown Completed [facility] Afluria Afluria Unknown Completed [facility] Flucelvax - single dose syringe Flucelvax - single dose syringe Unknown Completed [facility] Boostrix (Tdap) Boostrix (Tdap) Unknown Completed [facility] Pneumovax (PPSV23) Pneumovax (PPSV23) Unknown Completed [facility] Afluria single dose Afluria single dose Unknown Completed [facility] Fluarix Fluarix Unknown Completed [facility] Flucelvax - multidose vial Flucelvax - multidose vial Unknown Completed [facility] Afluria Afluria Unknown Completed [facility] Flucelvax - single dose syringe Flucelvax - single dose syringe Unknown Completed [facility] Boostrix (Tdap) Boostrix (Tdap) Unknown Completed [facility] Pneumovax (PPSV23) Pneumovax (PPSV23) Unknown Completed [facility] Afluria single dose Afluria single dose Unknown Completed [facility] Fluarix Fluarix Unknown Completed [facility] Flucelvax - multidose vial Flucelvax - multidose vial Unknown Completed [facility] Afluria Afluria Unknown Completed [facility] Flucelvax - single dose syringe Flucelvax - single dose syringe Unknown Completed [facility] Boostrix (Tdap) Boostrix (Tdap) Unknown Completed [facility] Pneumovax (PPSV23) Pneumovax (PPSV23) Unknown Completed [facility] Afluria (IIV4) - 3 years and older - SDS - 0.5mL Afluria (IIV4) - 3 years and older - SDS - 0.5mL Unknown Completed [facility] Fluarix (IIV4) - SDS - 0.5mL Fluarix (IIV4) - SDS - 0.5mL Unknown Completed [facility] Flucelvax (ccIIV4) - MDV - 0.5mL Flucelvax (ccIIV4) - MDV - 0.5mL Unknown Completed [facility] Afluria Afluria Unknown Completed [facility] Flucelvax (ccIIV4) - SDS - 0.5mL Flucelvax (ccIIV4) - SDS - 0.5mL Unknown Completed [facility] Boostrix (Tdap) Boostrix (Tdap) Unknown Completed [facility] Pneumovax (PPSV23) Pneumovax (PPSV23) Unknown Completed [facility] Afluria (IIV4) - 3 years and older - SDS - 0.5mL Afluria (IIV4) - 3 years and older - SDS - 0.5mL Unknown Completed [facility] Fluarix (IIV4) - SDS - 0.5mL Fluarix (IIV4) - SDS - 0.5mL Unknown Completed [facility] Flucelvax (ccIIV4) - MDV - 0.5mL Flucelvax (ccIIV4) - MDV - 0.5mL Unknown Completed [facility] Afluria Afluria Unknown Completed [facility] Flucelvax (ccIIV4) - SDS - 0.5mL Flucelvax (ccIIV4) - SDS - 0.5mL Unknown Completed [facility] Boostrix (Tdap) Boostrix (Tdap) Unknown Completed [facility] Pneumovax (PPSV23) Pneumovax (PPSV23) Unknown Completed [facility] Afluria (IIV4) - 3 years and older - SDS - 0.5mL Afluria (IIV4) - 3 years and older - SDS - 0.5mL Unknown Completed [facility] Fluarix (IIV4) - SDS - 0.5mL Fluarix (IIV4) - SDS - 0.5mL Unknown Completed [facility] Flucelvax (ccIIV4) - MDV - 0.5mL Flucelvax (ccIIV4) - MDV - 0.5mL Unknown Completed [facility] Afluria Afluria Unknown Completed [facility] Flucelvax (ccIIV4) - SDS - 0.5mL Flucelvax (ccIIV4) - SDS - 0.5mL Unknown Completed [facility] Boostrix (Tdap) Boostrix (Tdap) Unknown Completed [facility] Pneumovax (PPSV23) Pneumovax (PPSV23) Unknown Completed [facility] Afluria (IIV4) - 3 years and older - SDS - 0.5mL Afluria (IIV4) - 3 years and older - SDS - 0.5mL Unknown Completed [facility] Fluarix (IIV4) - SDS - 0.5mL Fluarix (IIV4) - SDS - 0.5mL Unknown Completed [facility] Flucelvax (ccIIV4) - MDV - 0.5mL Flucelvax (ccIIV4) - MDV - 0.5mL Unknown Completed [facility] Afluria Afluria Unknown Completed [facility] Flucelvax (ccIIV4) - SDS - 0.5mL Flucelvax (ccIIV4) - SDS - 0.5mL Unknown Completed [facility] Boostrix (Tdap) Boostrix (Tdap) Unknown Completed [facility] Pneumovax (PPSV23) Pneumovax (PPSV23) Unknown Completed [facility] Afluria (IIV4) - 3 years and older - SDS - 0.5mL Afluria (IIV4) - 3 years and older - SDS - 0.5mL Unknown Completed [facility] Fluarix (IIV4) - SDS - 0.5mL Fluarix (IIV4) - SDS - 0.5mL Unknown Completed [facility] Flucelvax (ccIIV4) - MDV - 0.5mL Flucelvax (ccIIV4) - MDV - 0.5mL Unknown Completed [facility] Afluria Afluria Unknown Completed [facility] Flucelvax (ccIIV4) - SDS - 0.5mL Flucelvax (ccIIV4) - SDS - 0.5mL Unknown Completed [facility] Boostrix (Tdap) Boostrix (Tdap) Unknown Completed [facility] Pneumovax (PPSV23) Pneumovax (PPSV23) Unknown Completed [facility] Afluria (IIV4) - 3 years and older - SDS - 0.5mL Afluria (IIV4) - 3 years and older - SDS - 0.5mL Unknown Completed [facility] Fluarix (IIV4) - SDS - 0.5mL Fluarix (IIV4) - SDS - 0.5mL Unknown Completed [facility] Flucelvax (ccIIV4) - MDV - 0.5mL Flucelvax (ccIIV4) - MDV - 0.5mL Unknown Completed [facility] Afluria Afluria Unknown Completed [facility] Flucelvax (ccIIV4) - SDS - 0.5mL Flucelvax (ccIIV4) - SDS - 0.5mL Unknown Completed [facility] Boostrix (Tdap) Boostrix (Tdap) Unknown Completed [facility] Pneumovax (PPSV23) Pneumovax (PPSV23) Unknown Completed [facility] Vital Signs Vital Name Observation Time Observation Value Comments S ource height 2023-05-07 08:45:00 69 [in_i] Commo n [facility] weight 2023-05-07 08:45:00 206 [lb_av] Comm on [facility] temperature 2023-05-07 08:45:00 98.0 [degF] Com [facility] bmi 2023-05-07 08:45:00 30.42 kg/m2 Comm on [facility] blood pressure systolic 2023-05-07 08:45:00 112 mm[Hg] [facility] blood pressure diastolic 2023-05-07 08:45:00 76 mm[Hg] [facility] height 2023-04-17 15:50:00 69 [in_i] Commo n [facility] weight 2023-04-17 15:50:00 206 [lb_av] Comm on [facility] temperature 2023-04-17 15:50:00 97.7 [degF] Com [facility] bmi 2023-04-17 15:50:00 30.42 kg/m2 Comm on [facility] blood pressure systolic 2023-04-17 15:50:00 139 mm[Hg[facility] pressure diastolic 2023-04-17 15:50:00 70 mm[Hg] [facility] height 2022-12-20 16:00:00 69 [in_i] Commo n [facility] weight 2022-12-20 16:00:00 209.0 [lb_av] Co mmon [facility] temperature 2022-12-20 16:00:00 97.2 [degF] Com [facility] bmi 2022-12-20 16:00:00 30.86 kg/m2 Comm on [facility] oximetry 2022-12-20 16:00:00 98 % Commo n [facility] respiratory rate 2022-12-20 16:00:00 16 /min Common [facility] blood pressure systolic 2022-12-20 16:00:00 137 mm[Hg] Common [facility] blood pressure diastolic 2022-12-20 16:00:00 76 mm[Hg] Common [facility] height 2022-11-16 09:30:00 69 [in_i] Commo n [facility] weight 2022-11-16 09:30:00 215.1 [lb_av] Co mmon [facility] temperature 2022-11-16 09:30:00 98.0 [degF] Com [facility] bmi 2022-11-16 09:30:00 31.76 kg/m2 Comm on [facility] blood pressure systolic 2022-11-16 09:30:00 112 mm[Hg] Common [facility] blood pressure diastolic 2022-11-16 09:30:00 78 mm[Hg] Common [facility] height 2022-08-30 17:15:00 69 [in_i] Commo n [facility] weight 2022-08-30 17:15:00 218[facility]8 [facility] 17:15:00 97.7 [degF] Com [facility] bmi 2022-08-30 17:15:00 32.31 kg/m2 Comm on [facility] oximetry 2022-08-30 17:15:00 97 % Commo n [facility] respiratory rate 2022-08-30 17:15:00 18 /min Common [facility] blood pressure systolic 2022-08-30 17:15:00 124 mm[Hg] [facility] blood pressure diastolic 2022-08-30 17:15:00 69 mm[Hg] [facility] height 2022-08-16 16:20:00 69 [in_i] Commo n [facility] weight 2022-08-16 16:20:00 217 [lb_av] Comm on [facility] temperature 2022-08-16 16:20:00 98.1 [degF] Com mon [facility] bmi 2022-08-16 16:20:00 32.04 kg/m2 Comm on [facility] oximetry 2022-08-16 16:20:00 97 % Commo n [facility] respiratory rate 2022-08-16 16:20:00 17 /min [facility] blood pressure systolic 2022-08-16 16:20:00 131 mm[Hg] [facility] blood pressure diastolic 2022-08-16 16:20:00 69 mm[Hg] Common [facility] height 2022-05-16 15:40:00 69 [in_i] Commo n [facility] weight 2022-05-16 15:40:00 222.0 [lb_av] Co mmon [facility] temperature 2022-05-16 15:40:00 97.9 [degF] Com mon [facility] bmi 2022-05-16 15:40:00 32.78 kg/m2 Comm on [facility] oximetry 2022-05-16 15:40:00 94 % Commo n [facility] respiratory rate 2022-05-16 15:40:00 17 /min Common [facility] blood pressure systolic 2022-05-16 15:40:00 126 mm[Hg] [facility] blood pressure diastolic 2022-05-16 15:40:00 74 mm[Hg] Common [facility] height 2022-02-21 08:20:00 69 [in_i] Commo n [facility] weight 2022-02-21 08:20:00 236.0 [lb_av] Co mmon [facility] temperature 2022-02-21 08:20:00 98.1 [degF] Com mon [facility] bmi 2022-02-21 08:20:00 34.85 kg/m2 Comm on [facility] oximetry 2022-02-21 08:20:00 98 % Commo n [facility] respiratory rate 2022-02-21 08:20:00 18 /min [facility] blood pressure systolic 2022-02-21 08:20:00 127 mm[Hg] Common [facility] blood pressure diastolic 2022-02-21 08:20:00 89 mm[Hg] [facility] height 2022-02-01 16:10:00 69 [in_i] Commo n [facility] weight 2022-02-01 16:10:00 235.5 [lb_av] Co mmon [facility] temperature 2022-02-01 16:10:00 97.3 [degF] Com mon [facility] bmi 2022-02-01 16:10:00 34.77 kg/m2 Comm on [facility] oximetry 2022-02-01 16:10:00 98 % Commo n [facility] respiratory rate 2022-02-01 16:10:00 17 /min [facility] blood pressure systolic 2022-02-01 16:10:00 124 mm[Hg] [facility] blood pressure diastolic 2022-02-01 16:10:00 77 mm[Hg] Common [facility] height 2021-11-03 15:00:00 69 [in_i] Commo n [facility] weight 2021-11-03 15:00:00 242 [lb_av] Comm on [facility] temperature 2021-11-03 15:00:00 97.2 [degF] Com mon [facility] bmi 2021-11-03 15:00:00 35.73 kg/m2 Comm on [facility] oximetry 2021-11-03 15:00:00 96 % Commo n [facility] respiratory rate 2021-11-03 15:00:00 16 /min Common [facility] blood pressure systolic 2021-11-03 15:00:00 129 mm[Hg] Common [facility] blood pressure diastolic 2021-11-03 15:00:00 81 mm[Hg] [facility] height 2021-10-12 16:10:00 70.5 [in_i] Comm on [facility] weight 2021-10-12 16:10:00 258 [lb_av] Comm on [facility] temperature 2021-10-12 16:10:00 98.4 [degF] Com mon [facility] bmi 2021-10-12 16:10:00 36.49 kg/m2 Comm on [facility] oximetry 2021-10-12 16:10:00 94 % Commo n [facility] respiratory rate 2021-10-12 16:10:00 16 /min Common [facility] blood pressure systolic 2021-10-12 16:10:00 132 mm[Hg] [facility] blood pressure diastolic 2021-10-12 16:10:00 72 mm[Hg] Common [facility] height 2021-07-13 15:10:00 70 [in_i] Commo n [facility] weight 2021-07-13 15:10:00 256.5 [lb_av] Co mmon [facility] temperature 2021-07-13 15:10:00 97.7 [degF] Com mon [facility] bmi 2021-07-13 15:10:00 36.8 kg/m2 Commo n [facility] oximetry 2021-07-13 15:10:00 98 % Commo n [facility] respiratory rate 2021-07-13 15:10:00 18 /min [facility] blood pressure systolic 2021-07-13 15:10:00 133 mm[Hg] Common [facility] blood pressure diastolic 2021-07-13 15:10:00 81 mm[Hg] [facility] blood pressure diastolic 2021-06-16 13:15:00 83 mm[Hg] [facility] height 2021-06-16 13:15:00 70 [in_i] Commo n [facility] weight 2021-06-16 13:15:00 255.4 [lb_av] Co mmon [facility] temperature 2021-06-16 13:15:00 97.9 [degF] Com [facility] bmi 2021-06-16 13:15:00 36.64 kg/m2 Comm on [facility] oximetry 2021-06-16 13:15:00 97 % Commo n [facility] respiratory rate 2021-06-16 13:15:00 18 /min [facility] blood pressure systolic 2021-06-16 13:15:00 147 mm[Hg] [facility] Encounters Start Date/Time End Date/Time Encounter Type Admission Type Attending Clinicians Care Facility Care Department Encounter ID Source 2023-05-08 08:28:00 Outpatient [facility] [id number] [facility] 2022-12-19 13:00:00 Outpatient Elizondo, Jeison [facility] [id number] [facility] 2022-12-18 10:53:00 Outpatient Elizondo, Jeison [facility] [id number] [facility] 2022-11-16 16:05:00 Outpatient Elizondo, Jeison [facility] [id number] [facility] 2022-11-06 14:54:00 Outpatient Elizondo, Jeison [facility] [id number] [facility] 2022-10-09 17:40:00 Outpatient Elizondo, Jeison [facility] [id number] [facility] 2022-02-17 08:31:01 Outpatient Elizondo, Jeison [facility] [id number] [facility] 2022-01-30 14:36:02 Outpatient Elizondo, Jeison [facility] [id number] [facility] 2021-12-01 11:30:01 Outpatient Elizondo, Jeison [facility] [id number] [facility] 2021-07-14 14:28:01 Outpatient Elizondo, Jeison [facility] [id number] [facility] 2021-06-16 12:57:02 Outpatient Elizondo, Jeison [facility] [id number] [facility] 2021-04-13 13:59:04 Outpatient Elizondo, Jeison [facility] [id number] [facility] 2021-04-13 13:29:52 Outpatient Elizondo, Jeison [facility] [id number] [facility] 2021-04-13 13:25:53 Outpatient Elizondo, Jeison [facility] [id number] [facility] 2021-04-13 13:07:45 Outpatient Elizondo, Jeison [facility] [id number] [facility] 2021-04-13 12:32:42 Outpatient Elizondo, Jeison [facility] [id number] [facility] 2021-04-13 12:31:53 Outpatient Elizondo, Jeison [facility] [id number] [facility] 2021-04-13 12:26:10 Outpatient Elizondo, Jeison [facility] [id number] [facility] 2021-04-13 11:48:59 Outpatient Elizondo, Jeison [facility] [id number] [facility] 2021-04-13 11:38:46 Outpatient Elizondo, Jeison [facility] ST[facility] [id number] [facility] 2023-05-21 00:00:00 2023-05-21 00:00:00 (TEL) [facility] [id number] [facility] 2023-05-07 00:00:00 2023-05-07 00:00:00 OFFICE VISIT ESTAB PT LEVEL [id number] [facility] 2023-04-17 00:00:00 2023-04-17 00:00:00 OFFICE VISIT ESTAB PT LEVEL [id number] [facility] 2023-01-26 00:00:00 2023-01-26 00:00:00 (TEL) [facility] [id number] [facility] 2022-12-20 00:00:00 2022-12-20 00:00:00 OFFICE VISIT ESTAB PT LEVEL [id number] [facility] 2022-11-16 00:00:00 2022-11-16 00:00:00 OFFICE VISIT NEW PT LEVEL [id number] [facility] 2022-10-09 00:00:00 2022-10-09 00:00:00 OFFICE VISIT ESTAB PT LEVEL [id number] [facility] 2022-08-30 00:00:00 2022-08-30 00:00:00 OFFICE VISIT ESTAB PT LEVEL [id number] [facility] 2022-08-30 00:00:00 2022-08-30 00:00:00 (TEL) [facility]C [facility] [id number] [facility] 2022-08-16 00:00:00 2022-08-16 00:00:00 PREV VISIT EST AGE 40-64 [facility] [id number] [facility] 2022-05-16 00:00:00 2022-05-16 00:00:00 OFFICE VISIT ESTAB PT LEVEL [id number] [facility] 2022-03-01 21:22:00 2022-03-03 12:39:00 Inpatient ER Fransisco Miller [facility] [id number] [facility] 2022-02-27 15:07:00 2022-03-03 12:39:00 Inpatient ER Fransisco Miller [facility] [id number] [facility] 2022-02-21 00:00:00 2022-02-21 00:00:00 OFFICE VISIT ESTAB PT LEVEL [id number] [facility] 2022-02-20 12:09:00 2022-02-20 12:09:00 Outpatient AUREA Chuy [place] [facility] [id number] [facility] 2022-02-16 00:00:00 2022-02-16 00:00:00 (TEL) [facility]LMLC [facility] [id number] [facility] 2022-02-01 00:00:00 2022-02-01 00:00:00 OFFICE VISIT EST PT LEVEL [id number] [facility] 2022 00:00:00 2022 00:00:00 (INJ) Injection [facility]MLC [facility] [id number] [facility] 2021-11-03 00:00:00 2021-11-03 00:00:00 OFFICE VISIT EST PT LEVEL [id number] [facility] 2021-10-31 00:00:00 2021-10-31 00:00:00 (TEL) [facility]MLC [facility] [id number] [facility] 2021-10-27 00:00:00 2021-10-27 00:00:00 (TEL) [facility]MLC [facility] [id number] [facility] 2021-10-25 00:00:00 2021-10-25 00:00:00 (TEL) [facility]LMLC [facility] [id number] [facility] 2021-10-21 00:00:00 2021-10-21 00:00:00 (TEL) [facility]MLC [facility] [id number] [facility] 2021-10-12 00:00:00 2021-10-12 00:00:00 OFFICE VISIT ESTAB PT LEVEL [id number] [facility] 2021-08-03 00:00:00 2021-08-03 00:00:00 (TEL) [facility]MLC [facility] [id number] [facility] 2021-07-26 00:00:00 2021-07-26 00:00:00 (TEL) [facility]MLC [facility] [id number] [facility] 2021-07-26 00:00:00 2021-07-26 00:00:00 (TEL) [facility]LMLC [facility] [id number] [facility] 2021-07-26 00:00:00 2021-07-26 00:00:00 (TEL) [facility]LMLC [facility] [id number] [facility] 2021-07-13 00:00:00 2021-07-13 00:00:00 (WELLNESS) Wellness Visit [facility] [id number] [facility] 2021-07-12 00:00:00 2021-07-12 00:00:00 (TEL) [facility] [id number] [facility] 2021-06-16 00:00:00 2021-06-16 00:00:00 OFFICE VISIT ESTAB PT LEVEL 4 [facility] [id number] [facility] Results Test Description Test Time Test Comments Results Result Co mments Source HEMOGLOBIN [id number] 00:00:00* Test Item Value Reference Range Interpretation Comme nts HEMOGLOBIN A1c (test code = 4548-4) 5.2 % See_Comment [Automated [employer]] The system which generated this result transmitted reference range: 4.2-5.6 %. The reference range was not used to interpret this result as normal/abnormal. TSH REFLEX TO FREE [id number] 00:00:00* Test Item Value Reference Range Interpretation Comme nts TSH REFLEX TO FREE T4 (test code = 02353-1) 1.640 UIU/ML See_Comment [Automated [employer]] The system which generated this result transmitted reference range: 0.400-4.100 UIU/ML. The reference range was not used to interpret this result as normal/abnormal. HEPATITIS C [id number] 00:00:00* Test Item Value Reference Range Interpretation Comme nts HEPATITIS C ANTIBODY (test c ode = 76433-9) NON-REACTIVE NON-REACTIVE URINALYSIS (CULTURE IF INDICATED)2022-12-05 00:00:00* Test Item Value Reference Range Interpretation Comme nts APPEARANCE (test code = 5767-9) CLEAR CLEAR BACTERIA (test code = 09552-5) NONE SEEN NONE SEEN BILIRUBIN (test code = 5770-3) NEGATIVE NEGATIVE CASTS, HYALINE (test code = 89887-9) NONE SEEN NONE-TRACE COLOR (test code = 5778-6) DARK YELLOW YELLOW-STRAW A EPITHELIAL CELLS (test code = 67678-4) 0-5 /HPF See_Comment [Automated [employer]] The system which generated this result transmitted reference range: 0-5 /HPF. The reference range was not used to interpret this result as normal/abnormal. GLUCOSE (test code = 5792-7) NEGATIVE NEGATIVE KETONES (test code = 5797-6) TRACE NEGATIVE A LEUKOCYTE ESTERASE (test code = 5799-2) NEGATIVE NEGATIVE NITRITE (test code = 5802-4) NEGATIVE NEGATIVE OCCULT BLOOD (test code = 10081-5) NEGATIVE NEGATIVE pH (test code = 5803-2) 6.0 5.0-9.0 PROTEIN (test code = 46272-8) NEGATIVE NEGATIVE RED BLOOD CELLS (test code = 86737-0) 0-2 /HPF See_Comment [Automated [employer]] The system which generated this result transmitted reference range: 0-2 /HPF. The reference range was not used to interpret this result as normal/abnormal. SPECIFIC GRAVITY (test code = 5811-5) 1.023 1.005-1.035 UROBILINOGEN (test code = 28407-3) 1.0 MG/DL See_Comment [Automated [employer]] The system which generated this result transmitted reference range: <=2.0 MG/DL. The reference range was not used to interpret this result as normal/abnormal. WHITE BLOOD CELLS (test code = 70946-4) 0-5 /HPF See_Comment [Automated message] The system which generated this result transmitted reference range: 0-5 /HPF. The reference range was not used to interpret this result as normal/abnormal. LIPID PANEL WITH REFLEX DIRECT [id number] 00:00:00* Test Item Value Reference Range Interpretation Comme nts CALC LDL CHOL (test code = 14910-3) 51 MG/DL See_Comment [Automated [employer]] The system which generated this result transmitted reference range: <100 MG/DL. The reference range was not used to interpret this result as normal/abnormal. CHOLESTEROL (test code = 2093-3) 102 MG/DL See_Comment [Automated [employer]] The system which generated this result transmitted reference range: <200 MG/DL. The reference range was not used to interpret this result as normal/abnormal. HDL CHOLESTEROL (test code = 2085-9) 36 MG/DL See_Comment L [Automated [employer]] The system which generated this result transmitted reference range: >39 MG/DL. The reference range was not used to interpret this result as normal/abnormal. RISK RATIO LDL/HDL (test code = 06656-3) 1.42 RATIO See_Comment [Automated message] The system which generated this result transmitted reference range: <3.55 RATIO. The reference range was not used to interpret this result as normal/abnormal. TRIGLYCERIDES (test code = 2571-8) 69 MG/DL See_Comment [Automated messa ge] The system which generated this result transmitted reference range: <150 MG/DL. The reference range was not used to interpret this result as normal/abnormal. COMPREHENSIVE METABOLIC [id number] 00:00:00* Test Item Value Reference Range Interpretation Comme nts ALBUMIN (test code = 1751-7) 4.3 G/DL See_Comment [Automated messa ge] The system which generated this result transmitted reference range: 3.5-5.2 G/DL. The reference range was not used to interpret this result as normal/abnormal. ALKALINE PHOSPHATASE (test code = 6768-6) 97 U/L See_Comment [Automated message] The system which generated this result transmitted reference range: 40-118 U/L. The reference range was not used to interpret this result as normal/abnormal. BILIRUBIN, TOTAL (test code = 1975-2) 1.4 MG/DL See_Comment H [Automated message] The system which generated this result transmitted reference range: <=1.2 MG/DL. The reference range was not used to interpret this result as normal/abnormal. BUN (test code = 3094-0) 15 MG/DL See_Comment [Automated messa ge] The system which generated this result transmitted reference range: 6-20 MG/DL. The reference range was not used to interpret this result as normal/abnormal. CALCIUM (test code = 52925-7) 9.3 MG/DL See_Comment [Automated messa ge] The system which generated this result transmitted reference range: 8.5-10.5 MG/DL. The reference range was not used to interpret this result as normal/abnormal. CALC A/G RATIO (test code = 1759-0) 2.0 RATIO See_Comment [Automated messa ge] The system which generated this result transmitted reference range: 1.0-2.6 RATIO. The reference range was not used to interpret this result as normal/abnormal. CALC BUN/CREAT (test code = 3097-3) 13 RATIO See_Comment [Automated messa ge] The system which generated this result transmitted reference range: 6-28 RATIO. The reference range was not used to interpret this result as normal/abnormal. CALC GLOBULIN (test code = 30767-8) 2.2 G/DL See_Comment [Automated messa ge] The system which generated this result transmitted reference range: 1.9-3.7 G/DL. The reference range was not used to interpret this result as normal/abnormal. CARBON DIOXIDE (test code = 1963-8) 26 MEQ/L See_Comment [Automated messa ge] The system which generated this result transmitted reference range: 19-31 MEQ/L. The reference range was not used to interpret this result as normal/abnormal. CHLORIDE (test code = 2075-0) 105 MEQ/L See_Comment [Automated messa ge] The system which generated this result transmitted reference range: 95-107 MEQ/L. The reference range was not used to interpret this result as normal/abnormal. CREATININE (test code = 2160-0) 1.13 MG/DL See_Comment [Automated messa ge] The system which generated this result transmitted reference range: 0.80-1.40 MG/DL. The reference range was not used to interpret this result as normal/abnormal. eGFR (2020 CKD-EPI) (test code = 62214-9) 80 ML/MIN/1.73 See_Comment [Automated messa ge] The system which generated this result transmitted reference range: >60 ML/MIN/1.73. The reference range was not used to interpret this result as normal/abnormal. GLUCOSE (test code = 1558-6) 79 MG/DL See_Comment [Automated messa ge] The system which generated this result transmitted reference range: 70-99 MG/DL. The reference range was not used to interpret this result as normal/abnormal. POTASSIUM (test code = 2823-3) 4.2 MEQ/L See_Comment [Automated messa ge] The system which generated this result transmitted reference range: 3.5-5.4 MEQ/L. The reference range was not used to interpret this result as normal/abnormal. PROTEIN, TOTAL (test code = 2885-2) 6.5 G/DL See_Comment [Automated messa ge] The system which generated this result transmitted reference range: 6.1-8.3 G/DL. The reference range was not used to interpret this result as normal/abnormal. AST (test code = 1920-8) 29 U/L See_Comment [Automated messa ge] The system which generated this result transmitted reference range: 9-50 U/L. The reference range was not used to interpret this result as normal/abnormal. ALT (test code = 1742-6) 42 U/L See_Comment [Automated messa ge] The system which generated this result transmitted reference range: 5-50 U/L. The reference range was not used to interpret this result as normal/abnormal. SODIUM (test code = 2951-2) 142 MEQ/L See_Comment [Automated messa ge] The system which generated this result transmitted reference range: 133-146 MEQ/L. The reference range was not used to interpret this result as normal/abnormal. LIPID PANEL WITH REFLEX DIRECT [id number] 00:00:00* Test Item Value Reference Range Interpretation Comme nts CALC LDL CHOL (test code = 90691-5) 52 MG/DL See_Comment [Automated messa ge] The system which generated this result transmitted reference range: <100 MG/DL. The reference range was not used to interpret this result as normal/abnormal. CHOLESTEROL (test code = 2093-3) 101 MG/DL See_Comment [Automated messa ge] The system which generated this result transmitted reference range: <200 MG/DL. The reference range was not used to interpret this result as normal/abnormal. HDL CHOLESTEROL (test code = 2085-9) 33 MG/DL See_Comment L [Automated messa ge] The system which generated this result transmitted reference range: >39 MG/DL. The reference range was not used to interpret this result as normal/abnormal. RISK RATIO LDL/HDL (test code = 92938-7) 1.58 RATIO See_Comment [Automated message] The system which generated this result transmitted reference range: <3.55 RATIO. The reference range was not used to interpret this result as normal/abnormal. TRIGLYCERIDES (test code = 2571-8) 80 MG/DL See_Comment [Automated messa ge] The system which generated this result transmitted reference range: <150 MG/DL. The reference range was not used to interpret this result as normal/abnormal. COMPREHENSIVE METABOLIC [id number] 00:00:00* Test Item Value Reference Range Interpretation Comme nts ALBUMIN (test code = 1751-7) 4.3 G/DL See_Comment [Automated messa ge] The system which generated this result transmitted reference range: 3.5-5.2 G/DL. The reference range was not used to interpret this result as normal/abnormal. ALKALINE PHOSPHATASE (test code = 6768-6) 113 U/L See_Comment [Automated message] The system which generated this result transmitted reference range: 40-118 U/L. The reference range was not used to interpret this result as normal/abnormal. BILIRUBIN, TOTAL (test code = 1975-2) 0.9 MG/DL See_Comment [Automated message] The system which generated this result transmitted reference range: <=1.2 MG/DL. The reference range was not used to interpret this result as normal/abnormal. BUN (test code = 3094-0) 16 MG/DL See_Comment [Automated messa ge] The system which generated this result transmitted reference range: 6-20 MG/DL. The reference range was not used to interpret this result as normal/abnormal. CALCIUM (test code = 37739-2) 9.8 MG/DL See_Comment [Automated messa ge] The system which generated this result transmitted reference range: 8.5-10.5 MG/DL. The reference range was not used to interpret this result as normal/abnormal. CALC A/G RATIO (test code = 1759-0) 1.7 RATIO See_Comment [Automated messa ge] The system which generated this result transmitted reference range: 1.0-2.6 RATIO. The reference range was not used to interpret this result as normal/abnormal. CALC BUN/CREAT (test code = 3097-3) 13 RATIO See_Comment [Automated messa ge] The system which generated this result transmitted reference range: 6-28 RATIO. The reference range was not used to interpret this result as normal/abnormal. CALC GLOBULIN (test code = 50754-2) 2.6 G/DL See_Comment [Automated messa ge] The system which generated this result transmitted reference range: 1.9-3.7 G/DL. The reference range was not used to interpret this result as normal/abnormal. CARBON DIOXIDE (test code = 1963-8) 28 MEQ/L See_Comment [Automated messa ge] The system which generated this result transmitted reference range: 19-31 MEQ/L. The reference range was not used to interpret this result as normal/abnormal. CHLORIDE (test code = 2075-0) 105 MEQ/L See_Comment [Automated messa ge] The system which generated this result transmitted reference range: 95-107 MEQ/L. The reference range was not used to interpret this result as normal/abnormal. CREATININE (test code = 2160-0) 1.21 MG/DL See_Comment [Automated messa ge] The system which generated this result transmitted reference range: 0.80-1.40 MG/DL. The reference range was not used to interpret this result as normal/abnormal. eGFR (2020 CKD-EPI) (test code = 16321-3) 74 ML/MIN/1.73 See_Comment [Automated messa ge] The system which generated this result transmitted reference range: >60 ML/MIN/1.73. The reference range was not used to interpret this result as normal/abnormal. GLUCOSE (test code = 1558-6) 96 MG/DL See_Comment [Automated messa ge] The system which generated this result transmitted reference range: 70-99 MG/DL. The reference range was not used to interpret this result as normal/abnormal. POTASSIUM (test code = 2823-3) 4.6 MEQ/L See_Comment [Automated messa ge] The system which generated this result transmitted reference range: 3.5-5.4 MEQ/L. The reference range was not used to interpret this result as normal/abnormal. PROTEIN, TOTAL (test code = 2885-2) 6.9 G/DL See_Comment [Automated messa ge] The system which generated this result transmitted reference range: 6.1-8.3 G/DL. The reference range was not used to interpret this result as normal/abnormal. AST (test code = 1920-8) 21 U/L See_Comment [Automated messa ge] The system which generated this result transmitted reference range: 9-50 U/L. The reference range was not used to interpret this result as normal/abnormal. ALT (test code = 1742-6) 30 U/L See_Comment [Automated messa ge] The system which generated this result transmitted reference range: 5-50 U/L. The reference range was not used to interpret this result as normal/abnormal. SODIUM (test code = 2951-2) 143 MEQ/L See_Comment [Automated Awdioa ge] The system which generated this result transmitted reference range: 133-146 MEQ/L. The reference range was not used to interpret this result as normal/abnormal.
[2023-05-24 20:54] LABS: Specific Gravity > 1.030 (1.005-1.030); Urine Bacteria None Seen /HPF (<20); Urine Bilirubin NEGATIVE (Negative); Urine Blood Negative (Negative); Urine Clarity Clear (Clear); Urine Color Yellow (Yellow); Urine Glucose NEGATIVE (Negative); Urine Mucus 2+ /HPF (None Seen); Urine Protein TRACE (Negative); Urine RBC <5 /HPF (None Seen); Urine Urobilinogen Normal (Normal)
[2023-05-24 20:59] LABS: Absolute Lymphocytes (CBC) 0.5 K/uL (0.7-4.9); Basophils % 0.1 % (0-1.3); Blood Morphology Comment NOT SEEN (NOT SEEN); Hematocrit 47.1 % (39.6-49.0); Lymphocytes % 2.8 % (15.3-44.8); MCV 91.9 fL (80-100); MPV 7.5 fL (7.6-11.3); Platelet Estimate ADEQ; Platelets 232 thou/uL (152-406); RBC Red Blood Cell Count 5.13 M/uL (4.33-5.43); White Blood Cell Scan OK (OK)
[2023-05-24 21:10] LABS: Albumin 4.2 g/dL (3.4-5.0); Albumin/Globulin Ratio 1.1 (1.1-1.8); Anion Gap 8.7 mEq/L (5.0-15.0); Bilirubin Total 1.7 mg/dL (0.2-1.0); Potassium 3.7 mEq/L (3.5-5.1)
--- NOTE | 2023-05-24 21:42 | RAD REPORT ---
EXAM DESCRIPTION: CT - Stone Protocol - 05/24/2023 9:03 pm CLINICAL HISTORY: left flank pain COMPARISON: Abdomen Pelvis W Contrast dated 10/02/2022; Abdomen Pelvis W/Wo Contrast dated 022; Stone Protocol dated 10/12/2020; Stone Protocol dated 12/25/2019 TECHNIQUE: Thin cut axial CT imaging of the abdomen and pelvis was performed without IV contrast. Mu ltiplanar reformats were generated and reviewed. All CT scans are performed using dose optimization technique as appropriate and may include automated exposure control or mA/KV adjustment according to patient size. FINDINGS: No suspicious findings in the lung bases. The liver demonstrates a stable 1.9 cm cyst adjacent to the falciform fissure. Adrenal glands, spleen , and pancreas show no suspicious findings. Gallbladder and biliary tree are also without suspicious finding. Symmetric renal contour, without suspicious parenchymal findings within limits of noncontrast techniq ue. No hydroureteronephrosis. Left upper pole 2 mm nonobstructing renal calculus Fluid opacification of segments of nondistended small bowel throughout the abdomen. No evidence of a focal transition point. No dilated bowel loops or bowel wall thickening. No free air, free fluid or f luid collections. Stable mild nonspecific central mesenteric fat stranding. Suture line along the rig ht colon. No hernia, mass or bulky lymphadenopathy. The urinary bladder is decompressed limiting eval uation. No suspicious bony findings. Right L4 pars interarticularis defect. IMPRESSION: Nonspecific fluid opacification of nondistended segments of small bowel, findings may re late to enteritis or diarrheal state. Left upper pole 2 mm nonobstructing renal calculus. No other acute intra-abdominal process.
--- NOTE | 2023-05-25 00:12 | EDPHYS ---
Physician Documentation [facility] Name: Severo Luna Age: 48 yrs Sex: Male : 1975 Arrival Date: 05/24/2023 Time: 19:54 Bed 8 Private MD: ED Physician Rc Calabrese HPI: 05/23 20:35 This 48 yrs old Male presents to ER via Ambulatory with complaints of Nausea/Vomiting. cp 20:35 The patient presents to the emergency department with nausea, that is moderate, cp vomiting, that is intermittent, abdominal pain, of the left lower quadrant, described as achy, loose stools. 20:35 Onset: The symptoms/episode began/occurred today. Possible causes: flare up of bowel cp problem, chronic epigastric pain. 20:35 Associated signs and symptoms: Pertinent negatives: constipation, fever, GI bleeding. cp Severity of symptoms: in the emergency department the symptoms have improved mildly. Historical: - Allergies: 20:22 No Known Allergies; km8 - Home Meds: 20:23 escitalopram oxalate 20 mg oral tablet [Active]; omeprazole 40 mg Oral cpDR 1 cap once km8 daily [Active]; carvedilol 12.5 mg oral tablet [Active]; valsartan 40 mg oral tablet [Active]; atorvastatin 80 mg oral tablet [Active]; losartan 25 mg Oral tab 1 tab once daily [Active]; allopurinol 100 mg oral tablet [Active]; - PMHx: 20:22 acid reflux; Hypertension; Kidney stones; km8 - PSHx: 20:22 back sx; pacemaker (back sx); Cholecystectomy; Appendectomy; right great toe; umbilical km8 hernia; - Immunization history:: Client reports having NOT received the Covid vaccine. Flu vaccine is up to date. - Social history:: Smoking status: Patient denies any tobacco usage or history of. Patient/guardian denies using alcohol, street drugs. ROS: 20:40 Constitutional: Negative for body aches, chills, fever, cp 20:40 Eyes: Negative for injury, pain, redness, and discharge, cp 20:40 ENT: Negative for drainage from ear(s), ear pain, sore throat, difficulty swallowing, difficulty handling secretions, 20:40 Cardiovascular: Negative for chest pain, palpitations, 20:40 Respiratory: Negative for cough, shortness of breath, wheezing, 20:40 Abdomen/GI: Positive for abdominal pain, nausea, vomiting, diarrhea, Negative for constipation, hematemesis, black/tarry stool, rectal bleeding, active vomiting, 20:40 Neuro: Negative for altered mental status, dizziness, headache, syncope, weakness, 20:40 All other systems are negative, Exam: 20:45 Constitutional: The patient appears in no acute distress, alert, awake, cp non-diaphoretic, non-toxic, well developed, well nourished, uncomfortable, 20:45 Head/Face: Normocephalic, atraumatic. cp 20:45 Eyes: Periorbital structures: appear normal, Conjunctiva: normal, no exudate, no injection, Sclera: no appreciated abnormality, Lids and lashes: appear normal, bilaterally, 20:45 ENT: External ear(s): are unremarkable, Nose: is normal, Mouth: Lips: moist, Oral mucosa: pink and intact, moist, Posterior pharynx: is normal, airway is patent, no erythema, no exudate, 20:45 Chest/axilla: Inspection: normal, 20:45 Cardiovascular: Rate: normal, Rhythm: regular, 20:45 Respiratory: the patient does not display signs of respiratory distress, Respirations: normal, no use of accessory muscles, no retractions, labored breathing, is not present, Breath sounds: are clear throughout, no decreased breath sounds, no stridor, no wheezing, 20:45 Abdomen/GI: Inspection: abdomen appears normal, Bowel sounds: active, all quadrants, Palpation: soft, in all quadrants, mild abdominal tenderness, in the left upper quadrant and left lower quadrant, rebound tenderness, is not appreciated, involuntary guarding, is not appreciated, 20:45 Back: pain, is absent, ROM is normal, CVA tenderness, is absent, 20:45 Neuro: Orientation: to person, place \T\ time. Mentation: is normal, Vital Signs: 20:19 BP 132 / 85; Pulse 83; Resp 16; Temp 98.6(TE); Pulse Ox 100% on R/A; Weight 94.35 kg km8 (R); Height 5 ft. 10 in. (R); Pain 5/10; 21:10 BP 121 / 86; Pulse 68; Resp 16; Pulse Ox 97% ; Pain 4/10; jj7 21:48 BP 107 / 72; Pulse 70; Pulse Ox 97% on R/A; Pain 0/10; tm6 22:51 BP 103 / 64; Pulse 67; Pulse Ox 94% on R/A; Pain 0/10; tm6 23:42 BP 109 / 65; Pulse 66; Resp 17; Pulse Ox 98% ; jj7 05/24 00:28 BP 105 / 67; Pulse 66; Resp 18; Temp 97.7(TE); Pulse Ox 94% on R/A; Pain 0/10; tm6 05/23 20:19 Body Mass Index 29.84 (94.35 kg, 177.8 cm) [facility] 05/23 20:19 Pain Scale: Adult [facility] 21:10 Pain Scale: Adult [facility] 21:48 Pain Scale: Adult 6 22:51 Pain Scale: Adult 6 05/24 00:28 Pain Scale: Adult 6 MDM: 05/23 20:30 Patient medically screened. 21:00 Differential diagnosis: gastritis, pancreatitis, viral gastroenteritis, cp gastroenteritis, choledocholithiasis, colitis, diverticulitis. 05/24 00:10 Data reviewed: vital signs, nurses notes, lab test result(s), radiologic studies, CT cp scan. 00:10 I considered the following discharge prescriptions or medication management in the emergency department Medications were administered in the Emergency Department. See MAR. Counseling: I had a detailed discussion with the patient and/or guardian regarding the historical points, exam findings, and any diagnostic results supporting the discharge/admit diagnosis, lab results, radiology results, to return to the emergency department if symptoms worsen or persist or if there are any questions or concerns that arise at home. Response to treatment: the patient's symptoms have markedly improved after treatment, and as a result, I will discharge patient. Special discussion: Based on the patient's Hx, exam, and Dx evaluation, there is no indication for emergent surgery or inpatient Tx. It is understood by the patient/guardian that if the Sx's persist or worsen they need to return immediately for re-evaluation. 05/23 20:27 Order name: CBC with Diff; Complete Time: 22:38 cp 05/23 23:09 Interpretation: Normal except: WBC 17.00; MPV 7.5; VINEET% 92.1; LYM% 2.8; NEUT A 15.7; cp LYMA 0.5. 05/23 20:27 Order name: CMP; Complete Time: 22:38 cp 05/23 23:09 Interpretation: Normal except: CL 111; BUN 23; GFR 75; BILIT 1.7; GLOB 3.8. cp 05/23 20:27 Order name: Lipase; Complete Time: 22:38 cp 05/23 20:27 Order name: Urinalysis w/ reflexes; Complete Time: 22:38 cp 05/23 23:09 Interpretation: Normal except: Urine SG > 1.030; UKET TRACE; UPROT TRACE. cp 05/23 21:00 Order name: CBC Smear Scan; Complete Time: 22:38 EDMS 05/23 20:43 Order name: CT Stone Protocol; Complete Time: 22:38 cp 05/23 20:27 Order name: IV Saline Lock; Complete Time: 20:47 cp 05/23 20:27 Order name: Labs collected and sent; Complete Time: 20:47 cp 05/23 23:11 Order name: PO challenge; Complete Time: 23:24 cp Administered Medications: 05/23 21:10 Drug: Ketorolac IVP 15 mg IVP once Route: IVP; Site: right antecubital; jj7 21:10 Drug: NS 0.9% IV 1000 ml IV at 500 ml/hr Per protocol; 1000 mL bolus Route: IV; Rate: jj7 500 ml/hr; Site: right antecubital; 22:58 Follow up: Response: No adverse reaction; IV Status: Completed infusion; IV Intake: tm6 500ml 21:10 Drug: Ondansetron IVP 4 mg IVP once; over 2 minutes Route: IVP; Site: right antecubital;jj7 Disposition: 05/24 15:58 I was immediately available on-site in the Emergency Department for consultation in the ms3 care of the patient. Disposition Summary: 05/25/23 00:12 Discharge Ordered Notes: Location: Home cp Problem: new cp Symptoms: have improved cp Condition: Stable cp Diagnosis - Nausea with vomiting, unspecified cp - Diarrhea, unspecified cp - Otitis media, unspecified, right ear cp Followup: cp - With: Private Physician - When: 2 - 3 days - Reason: Recheck today's complaints Discharge Instructions: - Discharge Summary Sheet cp - Diarrhea, Adult cp - Nausea and Vomiting, Adult cp Forms: - Medication Reconciliation Form cp - Thank You Letter cp - Antibiotic Education cp - Prescription Opioid Use cp - Patient Portal Instructions cp - Leadership Thank You Letter cp Prescriptions: - Amoxicillin 500 mg Oral Capsule - take 1 capsule ORAL route every 8 hours for 10 days; 30 tablet; Refills: 0, cp Product Selection Permitted - Pepcid 20 mg Oral Tablet - take 1 tablet ORAL route every 12 hours for 10 days; 20 tablet; Refills: 0, cp Product Selection Permitted - Zofran 4 mg Oral Tablet - take 1 tablet ORAL route every 12 hours As needed; 20 tablet; Refills: 0, cp Product Selection Permitted Signatures: Dispatcher [employer] EDMS Wes Moctezuma PA PA cp Sims, Marcus, DO DO ms3 Angelia Hamlin RN RN jj7 Nina Mccall RN RN km8 Dev Barba RN tm6 Corrections: (The following items were deleted from the chart) 23:11 [id number] 20:35 Possible causes: flare up of bowel problem, gastritis, cp cp
--- NOTE | 2023-05-25 00:12 | ER ---
Nurse's Notes [facility] Name: Severo Luna Age: 48 yrs Sex: Male : 1975 Arrival Date: 05/24/2023 Time: 19:54 Bed 8 Private MD: Diagnosis: Nausea with vomiting, unspecified;Diarrhea, unspecified;Otitis media, unspecified, right ear Presentation: 05/23 20:19 Chief complaint: Patient states: today around 1230 had LLQ pain with nausea, sweating km8 and vomiting; pt has chronic epigastric pain that he is seeing a GI MD for. Coronavirus screen: Client denies travel out of the [place] in the last 14 days. Ebola Screen: No symptoms or risks identified at this time. Initial Sepsis Screen: Does the patient meet any 2 criteria? No. Patient's initial sepsis screen is negative. Does the patient have a suspected source of infection? No. Patient's initial sepsis screen is negative. Risk Assessment: Do you want to hurt yourself or someone else? Patient reports no desire to harm self or others. Onset of symptoms was May 24, 2023 at 12:30. 20:19 Method Of Arrival: Ambulatory km8 20:19 Acuity: SCOT 3 km8 Triage Assessment: 20:23 General: Appears in no apparent distress. comfortable, Behavior is calm, cooperative, km8 appropriate for age. Pain: Complains of pain in epigastric area and left lower quadrant Pain currently is 5 out of 10 on a pain scale. Neuro: Level of Consciousness is awake, alert, obeys commands, Oriented to person, place, time, situation, Appropriate for age. Cardiovascular: Denies chest pain, Patient's skin is warm and dry. Respiratory: Airway is patent Respiratory effort is even, unlabored, Respiratory pattern is regular, symmetrical. GI: Abdomen is non-distended, Reports lower abdominal pain, nausea, vomiting. Derm: Skin is intact, is healthy with good turgor, Skin is dry, Skin is pink, warm \T\ dry. normal, Skin temperature is warm. Musculoskeletal: Range of motion: intact in all extremities. Historical: - Allergies: 20:22 No Known Allergies; km8 - Home Meds: 20:23 escitalopram oxalate 20 mg oral tablet [Active]; omeprazole 40 mg Oral cpDR 1 cap once km8 daily [Active]; carvedilol 12.5 mg oral tablet [Active]; valsartan 40 mg oral tablet [Active]; atorvastatin 80 mg oral tablet [Active]; losartan 25 mg Oral tab 1 tab once daily [Active]; allopurinol 100 mg oral tablet [Active]; - PMHx: 20:22 acid reflux; Hypertension; Kidney stones; km8 - PSHx: 20:22 back sx; pacemaker (back sx); Cholecystectomy; Appendectomy; right great toe; umbilical km8 hernia; - Immunization history:: Client reports having NOT received the Covid vaccine. Flu vaccine is up to date. - Social history:: Smoking status: Patient denies any tobacco usage or history of. Patient/guardian denies using alcohol, street drugs. Screenin:30 [facility] ED Fall Risk Assessment (Adult) History of falling in the last 3 months, jj7 including since admission No falls in past 3 months (0 pts) Confusion or Disorientation No (0 pts) Intoxicated or Sedated No (0 pts) Impaired Gait No (0 pts) Mobility Assist Device Used No (0 pt) Altered Elimination No (0 pt) Score/Fall Risk Level 0 - 2 = Low Risk Oriented to surroundings, Maintained a safe environment, Educated pt \T\ family on fall prevention, incl call for assistance when getting out of bed. Abuse screen: Denies threats or abuse. Nutritional screening: No deficits noted. Tuberculosis screening: No symptoms or risk factors identified. Assessment: 20:30 General: Appears in no apparent distress. comfortable, Behavior is calm, cooperative, jj7 appropriate for age. Pain: Complains of pain in posterior aspect of left lateral abdomen and left lower quadrant. GI: Reports lower abdominal pain, nausea, vomiting. 21:49 Reassessment: Patient and/or family updated on plan of care and expected duration. Pain tm6 level reassessed. Patient is alert, oriented x 3, equal unlabored respirations, skin warm/dry/pink. 22:54 Reassessment: Patient and/or family updated on plan of care and expected duration. Pain tm6 level reassessed. Patient is alert, oriented x 3, equal unlabored respirations, skin warm/dry/pink. 23:48 Reassessment: Patient and/or family updated on plan of care and expected duration. Pain tm6 level reassessed. Patient is alert, oriented x 3, equal unlabored respirations, skin warm/dry/pink. Vital Signs: 20:19 BP 132 / 85; Pulse 83; Resp 16; Temp 98.6(TE); Pulse Ox 100% on R/A; Weight 94.35 kg km8 (R); Height 5 ft. 10 in. (R); Pain 5/10; 21:10 BP 121 / 86; Pulse 68; Resp 16; Pulse Ox 97% ; Pain 4/10; jj7 21:48 BP 107 / 72; Pulse 70; Pulse Ox 97% on R/A; Pain 0/10; tm6 22:51 BP 103 / 64; Pulse 67; Pulse Ox 94% on R/A; Pain 0/10; tm6 23:42 BP 109 / 65; Pulse 66; Resp 17; Pulse Ox 98% ; jj7 05/24 00:28 BP 105 / 67; Pulse 66; Resp 18; Temp 97.7(TE); Pulse Ox 94% on R/A; Pain 0/10; tm6 05/23 20:19 Body Mass Index 29.84 (94.35 kg, 177.8 cm) [facility] 05/23 20:19 Pain Scale: Adult 8 21:10 Pain Scale: Adult j7 21:48 Pain Scale: Adult tm6 22:51 Pain Scale: Adult tm6 05/24 00:28 Pain Scale: Adult tm6 ED Course: 05/23 19:57 Patient arrived in ED. kj1 20:04 Wes Moctezuma PA is PHCP. cp 20:04 Rc Calabrese DO is Attending Physician. cp 20:22 Triage completed. km8 20:23 Arm band placed on right wrist. km8 20:30 Patient has correct armband on for positive identification. Placed in gown. Bed in low jj7 position. Call light in reach. Adult w/ patient. Client placed on continuous cardiac and pulse oximetry monitoring. NIBP monitoring applied. 20:30 No provider procedures requiring assistance completed. jj7 20:40 Inserted saline lock: 20 gauge in right antecubital area, using aseptic technique. jj7 Blood collected. 20:46 Angelia Hamlin RN is Primary Nurse. jj7 20:47 CBC with Diff Sent. jj7 20:47 Lipase Sent. jj7 20:47 Urinalysis w/ reflexes Sent. jj7 21:05 CT Stone Protocol In Process Unspecified. EDMS 21:10 Warm blanket given. Pillow given. jj7 05/24 00:28 IV discontinued, intact, bleeding controlled, No redness/swelling at site. Pressure tm6 dressing applied. 00:29 Provided Education on: medication usage. tm6 Administered Medications: 05/23 21:10 Drug: Ketorolac IVP 15 mg IVP once Route: IVP; Site: right antecubital; jj7 21:10 Drug: NS 0.9% IV 1000 ml IV at 500 ml/hr Per protocol; 1000 mL bolus Route: IV; Rate: jj7 500 ml/hr; Site: right antecubital; 22:58 Follow up: Response: No adverse reaction; IV Status: Completed infusion; IV Intake: tm6 500ml 21:10 Drug: Ondansetron IVP 4 mg IVP once; over 2 minutes Route: IVP; Site: right antecubital;jj Medication: 20:30 VIS not applicable for this client. jj7 Intake: 22:58 IV: 500ml; Total: 500ml. tm6 Outcome: 05/24 00:12 Discharge ordered by . cp 00:28 Discharged to home ambulatory, with family, tm6 00:28 Condition: stable 00:28 Discharge instructions given to patient, family, Instructed on discharge instructions, follow up and referral plans. medication usage, Demonstrated understanding of instructions, follow-up care, medications, Prescriptions given X 3, 00:29 Patient left the ED. tm6 Signatures: Dispatcher [employer] EDNV Wes Moctezuma PA PA cp Jackson, Kandis kj1 Angelia Hamlin RN RN jj7 Nina Mccall RN RN km8 Dev Barba RN RN tm6
[2023-05-25 00:45] VITALS: BP 105/67; TEMP 97.7; O2SAT 94
== END ==
LOC: ER 19:54
DX: R11.2 Nausea with vomiting, unspecified (principal); R19.7 Diarrhea, unspecified; H66.91 Otitis media, unspecified, right ear; K21.9 Gastro-esophageal reflux disease without esophagitis; I10 Essential (primary) hypertension; Z87.442 Personal history of urinary calculi; Z95.0 Presence of cardiac pacemaker
CPT/HCPCS: 96361; 85025; 81001; 36415; 83690; 80053; 76377; 74176; 96375; 96374; 99284; J2405; J7040

== ENCOUNTER 2023-12-31 08:10 | Day surgery (SDC) | payer OTHER ==
[2023-12-26 13:59] LABS: Absolute Basophils 0.1 K/uL (0-0.5); Absolute Eosinophils 0.5 K/uL (0-0.5); Absolute Lymphocytes (CBC) 1.5 K/uL (0.7-4.9); Absolute Monocytes 0.8 K/uL (0.1-1.3); Absolute Neutrophil 5.5 K/uL (1.8-8.0); Basophils % 0.8 % (0-1.3); Hematocrit 41.1 % (39.6-49.0); Hemoglobin 13.8 g/dL (13.6-17.9); Lymphocytes % 17.9 % (15.3-44.8); MCHC 33.6 g/dL (32.0-36.0); MCV 92.1 fL (80-100); MPV 7.5 fL (7.6-11.3); Monocytes % 9.1 % (3.3-12.3); Neutrophils % 66.2 % (41.7-73.7); Platelets 243 thou/uL (152-406); RBC Red Blood Cell Count 4.46 M/uL (4.33-5.43); Red Cell Distribution Width 12.6 % (12.1-15.2)
[2023-12-26 14:07] LABS: PT Prothrombin Time 11.6 SECONDS (9.4-12.5); Protime INR 1.04
[2023-12-26 14:11] LABS: Anion Gap 8.2 mEq/L (5.0-15.0); Potassium 4.2 mEq/L (3.5-5.1)
[2023-12-31] MEDS ORDERED: propofoL 200 MG/20 ML VIAL IV ONE ×2 (08:54→10:19)
[2023-12-31] MEDS ORDERED: LIDOCAINE 1% MPF 5 ML VIAL ONE (08:54)
[2023-12-31] MEDS: Ringers Lactate 1,000 ML IV ONE (08:55)
[2023-12-31] MEDS ORDERED: FENTANYL CITR 100 MCG/2 ML ONE (08:55)
[2023-12-31] MEDS ORDERED: MIDAZOLAM HCL 2 MG/2 ML INJ ONE (08:55)
[2023-12-31] MEDS ORDERED: ONDANSETRON 4 MG/2 ML VIAL ONE (08:56)
[2023-12-31] MEDS ORDERED: dexAMETHasone 10 MG/ML VIAL ONE (08:57)
[2023-12-31] MEDS ORDERED: KETOROLAC 30 MG/ML INJ ONE (08:57)
[2023-12-31] MEDS: CEFAZOLIN SODIUM 2 GM/VIAL ONE (10:06)
[2023-12-31] MEDS ORDERED: Phenylephrine HCl 10 MG/ML 1 ML VIAL ONE (10:39)
[2023-12-31] MEDS ORDERED: NS 0.9% VIAL 10 ML ONE (10:39)
--- NOTE | 2023-12-31 11:17 | P.OP ---
Date of Service: 12/31/23 Preoperative diagnoses: BPH with lower urinary tract obstruction and symptoms Right hemiscrotal/testicular pain Postoperative diagnoses: Same Principal procedures: Prostatic urethral lift/UroLift -7 implants total required (6 UL 2 devices and 1 UL 2 ATC device) Insertion of urethral Carpenter catheter Indication for procedure: Patient is a 48-year-old gentleman who presented to the urology clinic with persistent right hemiscrotal and epididymal pain radiating into the pelvis on his right side. He had undergone multiple layers of evaluation including imaging with multiple ultrasounds, CT of the abdomen and pelvis, and ultimately a transrectal ultrasound of the prostate. He was treated with alfuzosin, and this was the only medication that seemed to improve his scrotal/testicular pain. As a result, he was counseled on the potential for further improvement in his LUTS with further management of his prostatic urethral obstruction after cystoscopic evaluation revealed lateral lobar hypertrophy with elevated median bar potentially contributing to obstruction and reflux epididymitis. Given his youth, the addition of finasteride and the risks associated in terms of sexual function were less than desired. Procedure note: The patient was consented in the preoperative holding area before being transferred to the operative suite where general anesthesia was induced. He was given Ancef 2 g IV antimicrobial prophylaxis, and pneumoboots were provided for DVT prophylaxis. He was placed in the lithotomy position, padded and secured to the table appropriately. His genitalia was prepped with Hibiclens and he was draped in standard fashion. The case was begun using the 20 [place] UroLift sheath and a visual obturator to traverse the urethra and into the bladder with ease. The bladder was surveyed, and no papillary mucosal lesions, foreign bodies or stones were noted throughout. There was lateral lobar hypertrophy and slight elevation of median bar relative to the bladder neck and trigone. As a result, I switched the visual obturator for a UroLift delivery device and the first implant. This implant was initially targeted on the patient's left side about 1.5 to 2 cm distal to the bladder neck opening at around the 2-3 o'clock position. Angling the device against the tissue about 15 degrees, I pulled the trigger once delivering the needle through the substance of the prostate before angling the scope and additional 15 degrees to compress the tissue completely. I then pulled the trigger a second time delivering the capsular tab and partially retracting the needle. A third pull of the trigger did completely retract the needle and tension the suture. I then advanced the scope back toward the midline and then 2 to 3 mm toward the bladder neck opening until the white line of the monofilament was centered in the delivery bay, but the tip of the scope was still within the bladder neck opening, and I pulled the trigger a fourth time delivering the urethral end piece which did nicely lateralized the tissue with a rim of prostatic tissue between that and the opening to the bladder neck. As a result, I advanced the scope back into the bladder before switching the delivery device for a second implant. I then turned my attention to the patient's right side and similarly at the bladder neck about 1.5 to 2 cm distal to the bladder neck opening, I tested the tissue at around the 9 to 10 o'clock position but determine it would simply create a fishmouth opening with the elevated median bar; so instead, I targeted an area by sweeping the tissue anterolaterally on the right and ultimately endeavoring to place the implant at around the 11 o'clock position. I went through the steps described above, and this did beautifully leave an implant elevating the bladder neck; however the median bar did seem to rise a bit associated with this manipulation. As a result, I placed a third implant this t lali at around the 9 o'clock position at the bladder neck in order to take down that component of the median bar and open up the bladder neck. This worked beautifully; so I then turned my attention to the patient's apex. I placed a fourth implant at the level of the verumontanum on the patient's left side, and a 5 implant at the level of the verumontanum on the patient's right side. Survey of the channel created revealed beautiful opening with some residual lateral lobar intrusion emanating mostly from the patient's left side. As a result, I placed a 6 implant into that tissue at around the 9 o'clock position creating a beautiful opening from the apex to the bladder neck. Unfortunately now, the bladder neck did seem to narrow significantly with the manipulation of that median zone tissue on the left causing the bladder neck to essentially almost close because of the elevated median bar. As a result, I used the visual obturator to see if I could potentially manipulate the tissue of the bladder neck and whether an ATC device might be able to grab it and lateralize it in order to open up that bladder neck tissue. While this was equivocal in terms of the potential ability to do so, I then switched the visual obturator for a UL 2 ATC device, and I grasped that tissue on the patient's right side and the slight sulcus that had been created, and was able to grab and pin the tissue over to the patient's left side angling the scope carefully such that the needle would exit the prostate at the 3 o'clock position. When I surveyed the channel created, it did beautifully open the bladder neck as desired; so I then replaced the scope into his bladder and irrigated a small clot from within the bladder before refilling the bladder and removing the scope. I then placed a new 18 [place]ian Carpenter catheter into his bladder with ease and placed 30 cc of sterile water in the balloon. The drainage of fluid was light pink; so this was connected to a leg bag, and he was taken out of the lithotomy position. He was then awakened from general anesthesia before being transferred to a stretcher, and then transferred to the recovery room in good condition. Complications: None Discharge disposition: He will continue the Uroxatrol for the next month and then stop. We will assess his symptomatology and particularly his persistence of right hemiscrotal pain on follow-up at that time.
[2023-12-31 12:15] VITALS: BP 111/76; TEMP 97.1; O2SAT 99
[2023-12-31] MEDS ORDERED: CODEINE 30MG/APAP 300MG TAB ONE (12:16)
[2023-12-31] MEDS ORDERED: PHENAZOPYRIDINE 100MG TAB PO ONE (12:16)
[2023-12-31] MEDS: CODEINE 30MG/APAP 300MG TAB PO PRN (12:18)
[2023-12-31] MEDS: PHENAZOPYRIDINE 100MG TAB PO ONE (12:18)
== END 2023-12-31 13:15 | disposition home or self-care (01) ==
LOC: OR 08:10
PROVIDERS: ATTEND Urology
PROC: 0T7D8DZ Dilation of Urethra with Intraluminal Device, Via Natural or Artificial Opening Endoscopic (ICD-10-PCS; principal; 2023-12-31 09:30)
DX: N40.1 Benign prostatic hyperplasia with lower urinary tract symptoms (principal); N50.811 Right testicular pain; I10 Essential (primary) hypertension; K21.9 Gastro-esophageal reflux disease without esophagitis
CPT/HCPCS: 87088; 85025; 87086; 80048; 36415; 85610; 52441; 52442 ×5; A4216; J2704 ×2; J2001; J2371; J2250; J3010; J1100; J2405; J7120

== ENCOUNTER → 2024-02-05 | Day surgery (SDC) | payer OTHER ==
[2011-11-25 17:50] VITALS: BP 119/74
--- NOTE | 2024-02-05 10:38 | RAD REPORT ---
THYROID NODULE FNA PREPROCEDURE DIAGNOSIS: Isthmus thyroid nodule. E04.1 PROCEDURE: Isthmus thyroid nodule FNA. SPECIMEN: 5 - 25-gauge FNA specimens of the isthmus thyroid nodule. TECHNIQUE: Prior to the procedure , the risks and benefits of a thyroid FNA were explained with the patient marilyn estrada consented fully to the procedure. Real-time ultrasound was used to identify the isthmus nodule measuring 12 mm, TR5. The neck was then prepped and draped in the usual sterile fashion. Lidocaine was used to anesthetize the skin and soft tissues down towards the thyroid nodule. 5 separa te 25-gauge needles were then placed using ultrasound guidance into the nodule and specimen was obtained within the needle using a to and fro motion. These needles were placed in solution provided by pathology. The patient tolerated the procedure well without immediate post procedure complication. IMPRESSION: Technically successful ultrasound-guided FNA procedure isthmus thyroid nodule.
== END ==
LOC: FNA 09:33
PROVIDERS: ATTEND Otolaryngology Facial Plastic Surgery
PROC: 0GBJ3ZX Excision of Thyroid Gland Isthmus, Percutaneous Approach, Diagnostic (ICD-10-PCS; principal; 2024-02-05)
DX: C73 Malignant neoplasm of thyroid gland (principal)
CPT/HCPCS: 88162

== ENCOUNTER 2024-04-03 07:40 | Day surgery (SDC) | payer OTHER ==
[2024-03-31 13:20] LABS: Absolute Basophils 0.1 K/uL (0-0.5); Absolute Eosinophils 0.3 K/uL (0-0.5); Absolute Lymphocytes (CBC) 1.5 K/uL (0.7-4.9); Absolute Monocytes 0.6 K/uL (0.1-1.3); Absolute Neutrophil 6.4 K/uL (1.8-8.0); Basophils % 0.7 % (0-1.3); Eosinophils % 3.2 % (0-4.4); Hematocrit 43.2 % (39.6-49.0); Lymphocytes % 16.4 % (15.3-44.8); MCH 32.4 pg (27.0-35.0); MCHC 34.8 g/dL (32.0-36.0); MPV 8.3 fL (7.6-11.3); Monocytes % 7.3 % (3.3-12.3); Neutrophils % 72.4 % (41.7-73.7); Platelets 225 thou/uL (152-406); RBC Red Blood Cell Count 4.64 M/uL (4.33-5.43); Red Cell Distribution Width 12.3 % (12.1-15.2)
[2024-03-31 13:34] LABS: Anion Gap 8.4 mEq/L (5.0-15.0); Potassium 4.4 mEq/L (3.5-5.1)
[2024-04-03] MEDS: Ringers Lactate 1,000 ML IV ONE ×2 (08:40→11:00)
[2024-04-03] MEDS ORDERED: LIDOCAINE 2% MPF 5 ML VIAL ONE ×2 (09:08→09:37)
[2024-04-03] MEDS ORDERED: ONDANSETRON 4 MG/2 ML VIAL ONE (09:08)
[2024-04-03] MEDS ORDERED: FENTANYL CITR 100 MCG/2 ML ONE (09:08)
[2024-04-03] MEDS ORDERED: ROCURONIUM 50 MG/5 ML VIAL IV ONE (09:08)
[2024-04-03] MEDS ORDERED: MIDAZOLAM HCL 2 MG/2 ML INJ ONE (09:08)
[2024-04-03] MEDS ORDERED: propofoL 200 MG/20 ML VIAL IV ONE (09:08)
[2024-04-03] MEDS ORDERED: HYDROMORPHONE HCL 1 MG/ML INJ ONE (09:12)
[2024-04-03] MEDS: CEFAZOLIN SODIUM 2 GM/VIAL ONE (09:35)
[2024-04-03] MEDS ORDERED: dexAMETHasone 10 MG/ML VIAL ONE (09:36)
[2024-04-03] MEDS ORDERED: EPHEDRINE SULF 50 MG/ML VIAL ONE (09:38)
[2024-04-03] MEDS: LIDOCAINE HCL/EPINEPHRINE 20 ML MDV ONE (09:42)
--- NOTE | 2024-04-03 12:04 | EKG ---
Test Date: 2024-03-31 Test Time: 11:41:54 Plate Finisher: NBA MEASUREMENT RESULTS: Intervals: Rate: 60 AL: 160 QRSD: 104 QT: 446 QTc: 446 Foster: P: 10 AL: 160 QRS: 37 T: 49 INTERPRETIVE STATEMENTS: Electronic atrial pacemaker Compared to ECG 11/22/2021 14:37:49 Sinus bradycardia no longer present Electronically Signed On 04-03-24 12:01:13 STYLIST APPRENTICE by Noah Álvarez
[2024-04-03] MEDS ORDERED: Mastisol Adhesive Liq ONE (12:27)
[2024-04-03] MEDS: ACETAMINOPHEN 325 MG TABLET ONE (14:45)
[2024-04-04 02:48] VITALS: BP 113/62; TEMP 97.9; O2SAT 96
--- NOTE | 2024-04-07 11:56 | OP ---
Date of Procedure: 04/03/2024 Surgeon: ABHI GARCIA Primary Care Physician: Jeison Elizondo MD Preoperative Diagnosis: Malignant neoplasm of the thyroid gland. Postoperative Diagnosis: Malignant neoplasm of the thyroid gland. Procedure: Anesthesia: General endotracheal anesthesia was administered. I also infiltrated approximately 10 m L of 1% lidocaine with 1:100,000 epinephrine at the incision site. Specimens: The entire thyroid gland was handed off the field and sent to pathology for evaluation. Right thyroid lobe was marked with a 3-0 silk suture. Fibrous/fatty tissue was submitted to be asses sed for parathyroid gland. Preliminary findings reveal negative for parathyroid tissue. Findings: Large nodular neoplasm involving the right lobe of the thyroid gland. Several smaller nod ules palpated bilateral lobes. Complications: None. Disposition: Stable. The patient tolerated the procedure well. Indications For Procedure: The patient is a pleasant 49-year-old male who presented to outpatient cl in with throat irritation resulting in cough and upon examination of the neck in my office, the pat ient had a large nodule involving the right thyroid gland. 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 These were indications to bring the patient to operative suite for the above-mentioned procedure. He understood, all questions were answered. Risks versus benefits, c omplications were explained in detail and a consent form was signed, was placed in the chart. Description Of Procedure: The patient was transferred from the preoperative holding area to the oper ative suite by Department of Anesthesia, placed on the operating table supine, sedated, and intubated with a nerve integrity monitoring system tube. I infiltrated approximately 10 mL of 1% lidocaine wi th 1:100,000 epinephrine, approximately 2 cm above the sternal notch at the incision site. The patie nt was then sterilely prepped and draped. The patient was calibrated to the nerve integrity monitori ng system and that was working accurately. An incision was made approximately 2 fingerbreadths above the sternal notch. The horizontal incision was carried through the epidermis down to this subdermal plane. I then dissected down to the platys ma muscle utilizing monopolar electrocautery on a setting of 20 for coagulation and one of cutting. Once on the level of the platysma muscle, I switched to the LigaSure and dissection continued posteri fletcher to the area of the sternohyoid and sternothyroid muscles. Once down the level of the strap musc les, the midline was divided utilizing the LigaSure. My attention was placed to the right thyroid lo be initially. I dissected laterally along the right thyroid lobe superiorly to inferiorly and carefu lly dissecting out the right thyroid lobe, taken care to stay medially with dissection close to the g land. An inferior and superior parathyroid were visualized. Thus, dissection was carried medially t o these glands to preserve them. Once to the level of the isthmus, I started dissection of the left thyroid lobe. I carried the dissection from inferiorly to superiorly utilizing the LigaSure and the left inferior parathyroid was visualized and I carried the dissection medial to this gland to preserv e it. Once at the superior pole, I divided the superior pole vessels and I could not discern a parat hyroid gland in this region. I sent some specimen to pathology to see if the left superior pole tiss ue was indeed a parathyroid gland that came back negative for parathyroid tissue. I continued to dis sect medially and posteriorly to the airway. Once at the ligament, I divided this ligamen t with the LigaSure. The entire specimen was handed off the field after placing a suture of 3-0 silk suture into the right thyroid lobe. The wound area was irrigated with saline. There was little to no bleeding, but hemostasis was achieved with bipolar cauterization throughout the procedure. The ne rve was visualized bilaterally and stimulated with the nerve integrity monitoring system, found to be working appropriately. Avitene packing was placed into the wound bed. The strap muscles were loose ly approximated with 3-0 Vicryl suture in a simple interrupted fashion. Platysma and subcutaneous ti ssue were reapproximated with 3-0 Vicryl in a simple interrupted fashion. Dermal tissue was reapprox imated in a simple interrupted fashion with 4-0 Monocryl. The epidermis was reapproximated with 4-0 Monocryl in a subcuticular fashion. The suture tails were secured to the neck with Steri-Strips. Ma stisol and Steri-Strips were placed over the incision site. A drain was not needed as the patient ramirez d minimal to no bleeding. The patient tolerated the procedure well, will be discharged home on Liothyronine, Tums with calcium, antibiotic and analgesic medication and will follow up in 1 week or sooner if needed. KD/MODL Voice ID: [id number] Report ID: [id number]
== END 2024-04-03 15:06 | disposition home or self-care (01) ==
LOC: OR 07:40
PROVIDERS: ATTEND Otolaryngology Facial Plastic Surgery
PROC: 0GTH0ZZ Resection of Right Thyroid Gland Lobe, Open Approach (ICD-10-PCS; 2024-04-03)
PROC: 0GTG0ZZ Resection of Left Thyroid Gland Lobe, Open Approach (ICD-10-PCS; principal; 2024-04-03 09:25)
DX: C73 Malignant neoplasm of thyroid gland (principal)
CPT/HCPCS: 93005; 85025; 80048; 36415 ×2; 82310; 88331; 88305; 88307; 83970; 60240; J2704; J2003 ×2; J2250; J3010; J1100; J1171; J2405; J7120 ×2